=== PATIENT | female | born 1950 | race Hispanic/Latino ===

== ENCOUNTER → 2018-09-12 | Day surgery (SDC) | payer MEDICARE, OTHER ==
[2018-09-08 16:29] LABS: BASOPHILS # (AUTO) 0.1 (0.0-0.1); BASOPHILS % 0.9 % (0.0-1.0); EOSINOPHILS # (AUTO) 0.2 (0.0-0.4); EOSINOPHILS % 2.5 % (0.0-6.0); HEMATOCRIT 31.9 % (34.2-44.1); HEMOGLOBIN 10.6 g/dL (12.0-16.0); LYMPHOCYTES # (AUTO) 3.2 (1.0-3.2); LYMPHOCYTES % 42.9 % (18.0-39.1); MEAN CORPUSCULAR HGB CONC 33.2 g/dL (31-35); MEAN CORPUSCULAR VOLUME 96.4 fL (81-99); MONOCYTES # (AUTO) 0.8 (0.2-0.8); MONOCYTES % 10.3 % (4.4-11.3); NEUTROPHILS # (AUTO) 3.3 (2.1-6.9); NEUTROPHILS % 43.1 % (38.7-80.0); PLATELET COUNT 251 x10e3/uL (140-360); RED BLOOD COUNT 3.31 x10e6/uL (3.6-5.1); RED CELL DISTRIBUTION WIDTH 13.6 % (11.7-14.4)
[~2018-09-12] MED LIST: ARICEPT5 MG PO; ATORVASTATIN CA10 MG PO; CYMBALTA30 MG PO; FENOFIBRIC ACI105 MG PO; FENTANYL CITRATE/PF 100MCG/2 ML INJ ONE; FUROSEMIDE20 MG PO; GABAPENTIN300 MG PO; LEVOTHYROXINE112 MCG PO; LUMIGAN2.5 M1 OP; METFORMIN HCL500 MG PO; METHIMAZOLE10 MG PO; NORCO 7.5-3251 EACH PO; PREDNISONE5 MG PO; PROMETHAZINE HC25 M1 PO; PROPOFOL IV EMULSION 10 MG/ML 20 ML VIAL ONE; RANITIDINE HCL300 MG PO
--- OUTSIDE RECORDS SUMMARY | 2018-09-12 05:35 | XMS REPORT | Continuity of Care Document ---
Author Author [facility] Organization [facility] Address Unknown Phone Unavailable Care Team Providers Care Sports Medicine Trainer Name Role Phone MD Donnie, Ant COSME Unavailable Insurance Providers Payer name Policy type / Coverage type Policy ID Covered green party ID Policy Garcia AETNA - OPEN ACCESS (POS) AETNA - OPEN ACCESS (POS) AETNA - OPEN ACCESS (POS) Encounters Encounter Performer Location Date Lab Report Ant Fields MD [facility] Oct 21, 2013 Allergies, Adverse Reactions, Alerts Type Substance Reaction Status Drug allergy MORPHINE Active Problems Problem Effective Dates Problem Status CHOLELITHIASIS Oct 09, 2013 Active OTHER CHRONIC NONALCOHOLIC LIVER DISEASE Oct 09, 2013 Active Procedures Date Description Comments Oct 09, 2013 smoking status Never smoker Medications Medication Instructions Start Date Status CYMBALTA 60 MG CPEP Oct 09, 2013 Active CELEBREX 200 MG CAPS Oct 09, 2013 Active ORTHO-EST 0.625 0.75 MG TABS Oct 09, 2013 Active FUROSEMIDE 20 MG TABS Oct 09, 2013 Active GLUMETZA 1000 MG [id number] Oct 09, 2013 Active HYDROCODONE-ACETAMINOPHEN 5-325 MG TABS Oct 09, 2013 Active LEVOTHYROXINE SODIUM 500 MCG SOLR Oct 09, 2013 Active LUMIGAN 0.01 % SOLN Oct 09, 2013 Active LYRICA 75 MG CAPS Oct 09, 2013 Active PANTOPRAZOLE SODIUM 40 MG SOLR Oct 09, 2013 Active FENOFIBRIC ACID 135 MG CPDR Oct 09, 2013 Active VYTORIN 10-40 MG TABS Oct 09, 2013 Active OSTEO BI-FLEX REGULAR STRENGTH TABS Oct 09, 2013 Active CITRACAL/VITAMIN D TABS Oct 09, 2013 Active VITAMIN D TABS Oct 09, 2013 Active Vital Signs Date Description Test Result Oct 09, 2013 height E&M HEIGHT 64 in Oct 09, 2013 weight E&M WEIGHT 262 lb Oct 09, 2013 temperature E&M TEMPERATURE 98.4 deg f Oct 09, 2013 pulse rate E&M PULSE RATE 86 /min Oct 09, 2013 blood pressure, systolic BP SYSTOLIC 142 mm Hg Oct 09, 2013 blood pressure, diastolic BP DIASTOLIC 93 mm Hg
--- OUTSIDE RECORDS SUMMARY | 2018-09-12 05:35 | XMS REPORT | Continuity of Care Document ---
Author Author [facility] Organization [facility] Address Unknown Phone Unavailable Care Team Providers Care Manager Gyn Name Role Phone MD Donnie, Ant PP Unavailable Insurance Providers Payer name Policy type / Coverage type Policy ID Covered alliance party ID Policy Garcia AETNA - OPEN ACCESS (POS) AETNA - OPEN ACCESS (POS) AETNA - OPEN ACCESS (POS) Encounters Encounter Performer Location Date Office Visit Ant Fields MD [facility] Nov 06, 2013 Allergies, Adverse Reactions, Alerts Type Substance Reaction Status Drug allergy MORPHINE Active Problems Problem Effective Dates Problem Status CHOLELITHIASIS Oct 09, 2013 Active OTHER CHRONIC NONALCOHOLIC LIVER DISEASE Oct 09, 2013 Active Procedures Date Description Comments Oct 09, 2013 smoking status Never smoker Nov 06, 2013 smoking status Never smoker Medications Medication Instructions Start Date Status CYMBALTA 60 MG CPEP Oct 09, 2013 Active CELEBREX 200 MG CAPS Oct 09, 2013 Active ORTHO-EST 0.625 0.75 MG TABS Oct 09, 2013 Active FUROSEMIDE 20 MG TABS Oct 09, 2013 Active GLUMETZA 1000 MG [id number] Oct 09, 2013 Active HYDROCODONE-ACETAMINOPHEN 5-325 MG [...] pressure, diastolic BP DIASTOLIC 93 mm Hg Nov 06, 2013 weight E&M WEIGHT 259 lb Nov 06, 2013 temperature E&M TEMPERATURE 98.1 deg f Nov 06, 2013 pulse rate E&M PULSE RATE 76 /min Nov 06, 2013 blood pressure, systolic BP SYSTOLIC 130 mm Hg Nov 06, 2013 blood pressure, diastolic BP DIASTOLIC 79 mm Hg
--- OUTSIDE RECORDS SUMMARY | 2018-09-12 05:35 | XMS REPORT | Continuity of Care Document ---
Author Author [facility] Organization [facility] Address Unknown Phone Unavailable Care Team Providers Care Truck Driver Flatbed Name Role Phone MD Donnie, Ant COSME Unavailable Insurance Providers Payer name Policy type / Coverage type Policy ID Covered libertarian ID Policy Garcia AETNA - OPEN ACCESS (POS) AETNA - OPEN ACCESS (POS) AETNA - OPEN ACCESS (POS) Encounters Encounter Performer Location Date Lab Report Ant Fields MD [facility] [place] Oct 10, 2013 Vital Signs Date Description Test Result Oct [...]
--- OUTSIDE RECORDS SUMMARY | 2018-09-12 05:35 | XMS REPORT | Continuity of Care Document ---
Author Author [facility] Organization [facility] Address Unknown Phone Unavailable Care Team Providers Care Contract Administrative Assistant Name Role Phone MD Donnie, Ant PP Unavailable Insurance Providers Payer name Policy type / Coverage type Policy ID Covered democrat ID Policy Garcia AETNA - OPEN ACCESS (POS) AETNA - OPEN ACCESS (POS) AETNA - OPEN ACCESS (POS) Encounters Encounter Performer Location Date Office Visit Ant Fields MD [facility] Oct 09, 2013 Allergies, Adverse Reactions, Alerts Type Substance [...] Oct 09, 2013 Active GLUMETZA 1000 MG [id number] Oct 09, 2013 Active HYDROCODONE-ACETAMINOPHEN 5-325 MG [...]
--- OUTSIDE RECORDS SUMMARY | 2018-09-12 05:35 | XMS REPORT ---
Author Author Corazon Hernandez [facility] [employer] Address Unknown Phone Unavailable Care Team Providers Care Executive Officer Special Warfare Team Name Role Phone Corazon Hernandez Unavailable Allergies, Adverse Reactions, Alerts Substance Reaction Event Type Morphine Sulfate shortness of breath Drug Allergy Problems Problem Type Condition Code Onset Dates Condition Status Problem Osteoarthrosis M19.90 Active Problem Body Mass Index 40.0-44.9, adult V85.41 Active Problem Peripheral neuropathy 356.9 Active Problem Severe obesity (BMI 35.0-39.9) E66.01 Active Problem Carpal tunnel syndrome, left G56.02 Active Problem BMI 38.0-38.9,adult Z68.38 Active Problem Low back pain M54.5 Active Problem Morbid obesity 278.01 Active Problem Other chronic pain G89.29 Active Problem Hyperlipidemia E78.5 Active Assessment Abscess L02.91 Active Problem Osteopenia M85.80 Active Problem DM 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 type II, 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 Active Problem Esophageal reflux K21.9 Active Problem Other and unspecified hyperlipidemia E78.5 Active Problem Depressive disorder, not elsewhere classified F32.9 Active Problem Hypothyroidism E03.9 Active Problem Obesity 278.00 Active Medications Medication Code System Code Instructions Start Date End Date Status Dosage Lumigan [facility] [address]-70 0.01 % Ophthalmic Once a day Active 1 drop into affected eye in the evening Doxycycline Hyclate [facility] [address]-61 100 MG Orally every 12 hrs July 30, 2016 August 09, 2016 Active 1 capsule MetFORMIN HCl ER [facility] [address]-95 500 MG Orally Once a day Active 1 tablet with evening meal BD U/F Mini Pen Needle [facility] 8290-336705 31G X 5 MM subcutaneously daily with Victoza Dx E11.65 Dec 24, 2013 Active as directed Fenofibric Acid [facility] [address]-91 135 MG Orally Once a day Active 1 capsule Atorvastatin Calcium [facility] [id number] 10 mg Orally Once a day Active 1 tablet Cymbalta [facility] [address]-25 60 MG Orally twice a day Active 1 capsule Oxycodone-Acetaminophen [facility] [address]-86 10-325 MG Orally three times a day (tid) Active not defined OneTouch Test NDC 0 1 In Vitro daily Dec 07, 2013 Active one daily dx E11.65 OneTouch Lancets NDC 0 1 intramuscularly twice a day (bid) Dec 07, 2013 Active as directed dx E11.9 Furosemide [facility] [address]-15 20 MG Orally qd Active 2 tablet Vitamin D [facility] [address]-07 88665 UNIT Orally once per week Active 1 capsule OneTouch Basic System [facility] [address]-73 w/Device dx 250.00 daily Dec 07, 2013 Active as directed Pantoprazole Sodium [facility] [address]-36 40 MG Orally Once a day Active 1 tablet Celebrex [facility] [address]-68 200 MG Orally Once a day Active 1 capsule Acetaminophen [facility] [address] 650 MG Orally once a day Active 2 tablets in the evening Wellbutrin XL [facility] 10756806109 150 MG Orally Once a day Active 1 tablet in the morning Vital Signs Date/Time: August 02, 2016 BMI 37.55 Index Weight 212 lbs Height 63 in Cardiac Monitoring Heart Rate 76 /min Blood Pressure Diastolic 70 mm Hg Blood Pressure Systolic 120 mm Hg Results Name Result Date Reference Range Unit Abnormality Flag ROCEPHIN 250MG X2 Summary Purpose [employer]ClinicalWorks Submission
--- OUTSIDE RECORDS SUMMARY | 2018-09-12 05:35 | XMS REPORT | Continuity of Care Document ---
Author Author [facility] Interface Address Unknown Phone Unavailable Problems Problem Status Onset Date Classification Date Reported Comments Source CHOLELITHIASIS Active 10/09/2013 Condition 11/06/2013 [facility] OTHER CHRONIC NONALCOHOLIC LIVER DISEASE Active 10/09/2013 Condition 11/06/2013 [facility] Other and unspecified hyperlipidemia Active Problem 07/15/2018 [facility] DM 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 type II, uncontrolled Active Problem 07/15/2018 [facility] Hypothyroidism Active Problem 07/15/2018 [facility] Osteopenia Active Problem 07/15/2018 [facility] Other chronic pain Active Problem 07/15/2018 [facility] Hyperlipidemia Active Problem 07/15/2018 [facility] Carpal tunnel syndrome, left Active Problem 07/15/2018 [facility] Depressive disorder, not elsewhere classified Active Problem 07/15/2018 [facility] Esophageal reflux Active Problem 07/15/2018 [facility] Low back pain Active Problem 07/15/2018 [facility] Osteoarthrosis Active Problem 07/15/2018 [facility] Memory loss Active Problem 07/15/2018 [facility] CHANTAL Active Problem 07/15/2018 [facility] Difficulty walking Active Problem 07/15/2018 [facility] Type 2 diabetes mellitus without complication, without long-term current use of insulin Active Problem 07/15/2018 [facility] Body Mass Index 40.0-44.9, adult Active Problem 08/11/2016 [facility] Peripheral neuropathy Active Problem 08/11/2016 [facility] Severe obesity Active Problem 08/11/2016 [facility] BMI 38.0-38.9,adult Active Problem 08/11/2016 [facility] Morbid obesity Active Problem 08/11/2016 [facility] Abscess Active Diagnosis 08/05/2016 [facility] Obesity Active Problem 08/11/2016 [facility] Urinary tract infection, site unspecified Active Diagnosis 08/11/2016 [facility] Abscess of left breast Active Diagnosis 08/11/2016 [facility] Sore throat Active Diagnosis 02/25/2017 [facility] Flu-like symptoms Active Diagnosis 02/25/2017 [facility] Fall, initial encounter Active Diagnosis 02/25/2017 [facility] Breast cancer screening Active Diagnosis 07/14/2017 [facility] Localized edema Active Diagnosis 07/14/2017 [facility] Closed fracture of cervical vertebra, unspecified cervical vertebral level, subsequent encounter Active Diagnosis 12/01/2016 [facility] Dementia with behavioral disturbance, unspecified dementia type Active Problem 07/15/2018 [facility] Acquired hypothyroidism Active Problem 07/15/2018 [facility] Obstructive sleep apnea Active Problem 07/15/2018 [facility] Pain in right knee Active Diagnosis 08/16/2017 [facility] History of recent fall Active Diagnosis 05/12/2018 [facility] Pain in left knee Active Diagnosis 08/16/2017 [facility] Hyperlipidemia Active Problem 12/17/2014 [facility] Type II diabetes mellitus, uncontrolled Active Problem 12/17/2014 [facility] Hypothyroidism Active Problem 12/17/2014 [facility] Depression Active Problem 12/17/2014 [facility] GERD Active Problem 12/17/2014 [facility] Osteoarthritis Active Problem 12/17/2014 [facility] Menopause Active Diagnosis 11/20/2014 [facility] Vaginal mass Active Diagnosis 11/20/2014 [facility] Chronic pain Active Diagnosis 11/20/2014 [facility] Routine gynecological examination Active Diagnosis 11/20/2014 [facility] Soft tissue swelling Active Diagnosis 09/11/2015 [facility] Nausea & vomiting Active Diagnosis 09/10/2015 [facility] Yeast infection of the skin Active Diagnosis 09/10/2015 [facility] Depression Active Diagnosis 07/14/2015 [facility] UTI Active Diagnosis 07/14/2015 [facility] SK Active Diagnosis 06/19/2015 [facility] Tremor Active Diagnosis 06/19/2015 [facility] Skin lesion Active Diagnosis 06/19/2015 [facility] Encounter for repeat Papanicolaou smear of cervix Active Diagnosis 12/17/2014 [facility] Abdominal mass Active Diagnosis 11/08/2015 [facility] Abdominal pain Active Diagnosis 11/08/2015 [facility] Anxiety Active Problem 07/15/2018 [facility] Chest pain Active Diagnosis 11/08/2015 [facility] Vomiting Active Diagnosis 11/08/2015 [facility] Screening for breast cancer Active Diagnosis 11/08/2015 [facility] Epigastric pain Active Diagnosis 11/08/2015 [facility] Dependent edema Active Diagnosis 07/27/2016 [facility] Weight loss Active Diagnosis 11/08/2015 [facility] Lower abdominal pain Active Diagnosis 01/17/2016 [facility] Acute cystitis with hematuria Active Diagnosis 01/17/2016 [facility] Umbilical hernia without obstruction and without gangrene Active Diagnosis 01/17/2016 [facility] Vaginitis Active Diagnosis 12/10/2015 [facility] Elevated serum creatinine Active Diagnosis 09/19/2015 [facility] Pain in thoracic spine Active Diagnosis 04/29/2016 [facility] Status post umbilical hernia repair, follow-up exam Active Diagnosis 04/29/2016 [facility] Dementia without behavioral disturbance, unspecified dementia type Active Problem 07/15/2018 [facility] Chronic gastritis without bleeding, unspecified gastritis type Active Problem 07/15/2018 [facility] Vomiting, intractability of vomiting not specified, presence of nausea not specified, unspecified vomiting type Active Diagnosis 05/13/2018 [facility] Musculoskeletal pain Active Diagnosis 05/12/2018 [facility] Asymptomatic menopausal state Active Diagnosis 03/27/2018 [facility] Routine general medical examination at a health care facility Active Diagnosis 03/27/2018 [facility] Continuous leakage of urine Active Diagnosis 07/27/2016 [facility] Encntr for general adult medical exam w/o abnormal findings Active Diagnosis 07/27/2016 [facility] Impacted cerumen of both ears Active Diagnosis 06/08/2016 [facility] Hearing loss, unspecified hearing loss type, unspecified laterality Active Diagnosis 06/08/2016 [facility] Medications Medication Details Route Status Patient Instructions Ordering Provider Order Date Source Levothyroxine Sodium 1 tablet on an empty stomach in the morning Orally Active 125 MCG Orally Once a day [facility] 05/08/2018 [facility] Promethazine HCl 1 tablet\ Orally Active 25 MG Orally every 12 hrs prn nausea [facility] 05/08/2018 [facility] Ranitidine HCl 1 tablet Orally Active 300 MG Orally Once a day [facility] 07/18/2017 [facility] Amoxicillin 1 capsule Orally Active 500 mg Orally every 12 hrs [facility] 02/23/2017 [facility] Bromfed DM 10 ml as needed Orally Active 30-2-10 MG/5ML Orally Q8 PRN [facility] 02/23/2017 [facility] Levothyroxine Sodium 1 tablet on an empty stomach in the morning Orally Active 75 MCG Orally Once a day [facility] 12/02/2016 [facility] Levothyroxine Sodium 1 tablet on an empty stomach in the morning Orally Active 75 MCG Orally Once a day [facility] 12/02/2016 [facility] Doxycycline Hyclate 1 capsule Orally Active 100 MG Orally every 12 hrs [facility] 07/30/2016 [facility] Bactrim DS 1 tablet Orally Active 800-160 MG Orally Twice a day [facility] 07/28/2016 [facility] Pantoprazole Sodium 1 tablet Orally Active 40 MG Orally Once a day [facility] 03/15/2016 [facility] Fenofibric Acid 1 capsule Orally Active 135 MG Orally Once a day [facility] 03/15/2016 [facility] MetFORMIN HCl ER 1 tablet with evening meal Orally Active 500 MG Orally Once a day [facility] 03/15/2016 [facility] Cipro 1 tablet Orally Active 500 MG Orally Twice a day [facility] 01/14/2016 [facility] Levothyroxine Sodium 1 tablet Orally Active 150 MCG Orally Once a day, 30 minutes before first meal on an empty stomach [facility] 12/09/2015 [facility] Diflucan 1 tablet Orally Active 150 MG Orally once and another in 72 hours if needed [facility] 12/08/2015 [facility] Klor-Con 10 1 tablet with food Orally Active 10 MEQ Orally daily [facility] 11/07/2015 [facility] Levothyroxine Sodium 1 tablet Orally Active 175 MCG Orally Once a day [facility] 09/18/2015 [facility] MetFORMIN HCl ER 1 tablet with evening meal Orally Active 500 mg Orally Once a day [facility] 09/08/2015 [facility] Zofran 1 tablet Orally No Longer Active 4 mg Orally daily as needed [facility] 09/08/2015 [facility] Nystatin 1 to affected area Externally Active 818163 UNIT/GM Externally Twice a day [facility] 09/08/2015 [facility] Atorvastatin Calcium 1 tablet Orally Active 10 mg Orally Once a day [facility] 07/10/2015 [facility] Cipro 1 tablet Orally Active 250 MG Orally every 12 hrs [facility] 07/10/2015 [facility] Furosemide 2 tablet Orally Active 20 mg Orally twice a day (bid) [facility] 06/17/2015 [facility] Wellbutrin XL 1 tablet in the morning Orally No Longer Active 150 MG Orally Once a day [facility] 06/16/2015 [facility] Furosemide 2 tablet Orally Active 20 mg Orally twice a day (bid) (MUST SEE DOCTOR BEFORE NEXT REFILL) [facility] 05/22/2015 [facility] Lidocaine 1 patch to skin remove after 12 hours Externally Active 5 % Externally Once a day [facility] 04/01/2014 [facility] BD U/F Mini Pen Needle as directed subcutaneously Active 31G X 5 MM subcutaneously daily with Victoza Dx E11.65 [facility] 12/24/2013 [facility] OneTouch Test one daily dx E11.65 In Vitro Active 1 In Vitro daily [facility] 12/07/2013 [facility] OneTouch Lancets as directed dx E11.9 intramuscularly Active 1 intramuscularly twice a day (bid) [facility] 12/07/2013 [facility] OneTouch Basic System as directed dx 250.00 Active w/Device dx 250.00 daily [facility] 12/07/2013 [facility] OneTouch Lancets as directed dx 250.00 intramuscularly Active 1 intramuscularly twice a day (bid) [facility] 12/07/2013 [facility] OneTouch Test one daily dx 250.00 In Vitro Active 1 In Vitro daily [facility] 12/07/2013 [facility] OneTouch Lancets as directed dx E11.9 intramuscularly Active 1 intramuscularly twice a day (bid) [facility] 12/07/2013 [facility] OneTouch Test one daily dx E11.65 In Vitro Active 1 In Vitro daily [facility] 12/07/2013 [facility] CYMBALTA 60 MG CPEP Active 10/09/2013 [facility] CELEBREX 200 MG CAPS Active 10/09/2013 [facility] ORTHO-EST 0.625 0.75 MG TABS Active 10/09/2013 [facility] FUROSEMIDE 20 MG TABS Active 10/09/2013 [facility] GLUMETZA 1000 MG [id number] Active 10/09/2013 [facility] HYDROCODONE-ACETAMINOPHEN 5-325 MG TABS Active 10/09/2013 [facility] LEVOTHYROXINE SODIUM 500 MCG SOLR Active 10/09/2013 [facility] LUMIGAN 0.01 % SOLN Active 10/09/2013 [facility] LYRICA 75 MG CAPS Active 10/09/2013 [facility] PANTOPRAZOLE SODIUM 40 MG SOLR Active 10/09/2013 [facility] FENOFIBRIC ACID 135 MG CPDR Active 10/09/2013 [facility] VYTORIN 10-40 MG TABS Active 10/09/2013 [facility] OSTEO BI-FLEX REGULAR STRENGTH TABS Active 10/09/2013 [facility] CITRACAL/VITAMIN D TABS Active 10/09/2013 [facility] VITAMIN D TABS Active 10/09/2013 [facility] CELEBREX 200 MG CAPS Active 10/09/2013 [facility] HYDROCODONE-ACETAMINOPHEN 5-325 MG TABS Active 10/09/2013 [facility] LYRICA 75 MG CAPS Active 10/09/2013 [facility] MetFORMIN HCl ER 1 tablet with evening meal Orally Active 500 MG Orally Once a day [facility] Wellbutrin XL 1 tablet orally Active 150 MG orally Once a day [facility] Pantoprazole Sodium 1 tablet Orally Active 40 mg Orally Once a day [facility] MetFORMIN HCl ER 1 tablet with evening meal Orally Active 500 mg Orally qd [facility] Levothyroxine Sodium not defined Orally Active 88 MCG Orally [facility] Lumigan 1 drop into affected eye in the evening Ophthalmic Active 0.01 % Ophthalmic Once a day [facility] Fenofibric Acid 1 capsule Orally Active 135 MG Orally Once a day [facility] Atorvastatin Calcium TAKE 1 TABLET BY MOUTH DAILY NA Active 10 MG [facility] Cymbalta 1 capsule Orally Active 60 MG Orally twice a day [facility] Oxycodone-Acetaminophen not defined Orally Active 10-325 MG Orally three times a day (tid) [facility] Furosemide 2 tablet Orally Active 20 MG Orally qd [facility] Vitamin D 1 capsule Orally Active 76035 U Orally Once a day [facility] Pantoprazole Sodium 1 tablet Orally Active 40 MG Orally Once a day [facility] Celebrex 1 capsule Orally Active 200 MG Orally Once a day [facility] Acetaminophen 2 tablets in the evening Orally Active 650 MG Orally once a day [facility] Lumigan 1 drop into affected eye in the evening Ophthalmic Active 0.01 % Ophthalmic Once a day [facility] Fenofibric Acid 1 capsule Orally Active 135 MG Orally Once a day [facility] Furosemide 1 tablet SQ Active 20 mg SQ daily [facility] Oxycodone-Acetaminophen not defined Orally Active 10-325 MG Orally three times a day (tid) [facility] Biotin 1 tablet Orally Active 300 MCG Orally Once a day [facility] Cyclobenzaprine HCl 1 tablet as needed Orally Active 10 MG Orally Three times a day [facility] BuPROPion HCl ER (XL) TAKE 1 TABLET IN THE MORNING ONCE A DAY ORALLY 90 DAYS NA Active 150 MG [facility] Acetaminophen 2 tablets in the evening Orally Active 650 MG Orally once a day [facility] Gabapentin 1 capsule Orally Active 300 MG Orally Three times a day [facility] Cymbalta 1 capsule Orally Active 60 MG Orally Once a day [facility] Fenoprofen Calcium 1 capsule Orally Active 400 MG Orally Three times a day [facility] Hydrocodone-Acetaminophen not defined NA Active [facility] Atorvastatin Calcium 1 tablet Orally Active 10 mg Orally Once a day [facility] Levothyroxine Sodium 1 tablet by mouth Active 150 MCG by mouth daily [facility] PredniSONE not defined NA Active [facility] Gabapentin 1 capsule Orally Active 300 MG Orally Three times a day [facility] BuPROPion HCl ER (XL) 1 tablet in the morning Orally Active 150 MG Orally Once a day [facility] Fenoprofen Calcium 1 capsule Orally Active 400 MG Orally Three times a day [facility] Cyclobenzaprine HCl 1 tablet as needed Orally Active 10 MG Orally Three times a day [facility] PredniSONE 2 tablet Orally Active 5 MG Orally daily [facility] Donepezil Hydrochloride 1 tablet Orally Active 5 MG Orally Once a day [facility] ProAir HFA 2 puffs as needed Inhalation Active 108 (90 Base) MCG/ACT Inhalation as needed (prn) [facility] Hydrocodone-Acetaminophen 1 tablet Orally Active 10-325 MG Orally every 6 hrs [facility] Glumetza TAKE 1 TABLET BY MOUTH TWICE A DAY NA Active 1000 mg twice a day (bid) [facility] Tizanidine HCl 1 tablet as needed Orally No Longer Active 4 mg Orally every 8 hrs [facility] Lyrica 1 capsule Orally Active 150 MG Orally three times a day (tid) [facility] Levothyroxine Sodium take 1 tablet by mouth every day on an empty stomach NA Active 200 MCG [facility] Vimovo Unknown Orally Active 500-20 MG Orally Twice a day [facility] Pantoprazole Sodium 1 tablet Orally Active 40 MG Orally Once a day [facility] Furosemide TAKE 1 TABLET BY MOUTH DAILY NA Active 20 MG [facility] Estropipate TAKE 1 TABLET BY MOUTH EVERY DAY NA No Longer Active 0.75 MG [facility] Drisdol TAKE ONE CAPSULE BY MOUTH EACH WEEK NA Active 53367 UNIT [facility] Meloxicam Unknown Orally Active 7.5 MG Orally every day (qd) [facility] Glumetza TAKE 1 TABLET BY MOUTH TWICE A DAY NA Active 1000 MG [facility] Levothyroxine Sodium TAKE 1 TABLET BY MOUTH EVERY DAY ON AN EMPTY STOMACH NA No Longer Active 200 MCG [facility] Ciprofloxacin HCl 2 tablets Orally Active 250 MG Orally every 12 hrs [facility] BuPROPion HCl ER (SR) 1 tablet Orally Active 150 MG Orally Twice a day [facility] Levothyroxine Sodium 1 tablet Orally Active 150 MCG Orally Once a day [facility] Duloxetine HCl 1 capsule Orally Active 60 MG Orally Once a day [facility] Tramadol HCl 1 tablet on the tongue and allow to dissolve as needed Orally Active 50 MG Orally every 6 hrs [facility] Ranitidine HCl 1 tablet Orally Active 300 MG Orally Once a day [facility] Allergies, Adverse Reactions, Alerts Substance Category Reaction Severity Reaction type Status Date Reported Comments Source MORPHINE Drug allergy MORPHINE 10/09/2013 [facility] Morphine Sulfate Adverse Reaction shortness of breath Adverse Reaction Active 05/08/2018 [facility] Immunizations Immunization Date Given Site Status Last Updated Comments Source Results Order Name Results Value Reference Range Date Interpretation Comments Source Vital Signs Vital Sign Value Date Comments Source Weight 218 05/08/2018 [facility] Height 63 05/08/2018 [facility] Heart Rate 66 05/08/2018 [facility] Diastolic (mm Hg) 76 05/08/2018 [facility] Systolic (mm Hg) 120 05/08/2018 [facility] Weight 225 04/25/2018 [facility] Height 63 04/25/2018 [facility] Heart Rate 81 04/25/2018 [facility] Diastolic (mm Hg) 80 04/25/2018 [facility] Systolic (mm Hg) 122 04/25/2018 [facility] Weight 231 03/14/2018 [facility] Height 63 03/14/2018 [facility] Heart Rate 73 03/14/2018 [facility] Diastolic (mm Hg) 70 03/14/2018 [facility] Systolic (mm Hg) 128 03/14/2018 [facility] Weight 218.6 08/02/2017 [facility] Height 63 08/02/2017 [facility] Heart Rate 82 08/02/2017 [facility] Diastolic (mm Hg) 82 08/02/2017 [facility] Systolic (mm Hg) 120 08/02/2017 [facility] Weight 228 07/11/2017 [facility] Height 63 07/11/2017 [facility] Temperature Oral (F) 98.3 F 07/11/2017 [facility] Heart Rate 80 07/11/2017 [facility] Diastolic (mm Hg) 72 07/11/2017 [facility] Systolic (mm Hg) 148 07/11/2017 [facility] Weight 232 02/23/2017 [facility] Height 63 02/23/2017 [facility] Heart Rate 80 02/23/2017 [facility] Diastolic (mm Hg) 70 02/23/2017 [facility] Systolic (mm Hg) 130 02/23/2017 [facility] Weight 210 08/04/2016 [facility] Height 63 08/04/2016 [facility] Heart Rate 75 08/04/2016 [facility] Diastolic (mm Hg) 70 08/04/2016 [facility] Systolic (mm Hg) 132 08/04/2016 [facility] Weight 212 08/02/2016 [facility] Height 63 08/02/2016 [facility] Heart Rate 76 08/02/2016 [facility] Diastolic (mm Hg) 70 08/02/2016 [facility] Systolic (mm Hg) 120 08/02/2016 [facility] Weight 217 07/27/2016 [facility] Height 63 07/27/2016 [facility] Heart Rate 74 07/27/2016 [facility] Diastolic (mm Hg) 74 07/27/2016 [facility] Systolic (mm Hg) 128 07/27/2016 [facility] Weight 217 07/20/2016 [facility] Height 63 07/20/2016 [facility] Heart Rate 77 07/20/2016 [facility] Diastolic (mm Hg) 70 07/20/2016 [facility] Systolic (mm Hg) 116 07/20/2016 [facility] Weight 207 06/03/2016 [facility] Height 63 06/03/2016 [facility] Heart Rate 72 06/03/2016 [facility] Diastolic (mm Hg) 72 06/03/2016 [facility] Systolic (mm Hg) 122 06/03/2016 [facility] Weight 206 04/21/2016 [facility] Height 63 04/21/2016 [facility] Heart Rate 74 04/21/2016 [facility] Diastolic (mm Hg) 70 04/21/2016 [facility] Systolic (mm Hg) 110 04/21/2016 [facility] Weight 191 01/14/2016 [facility] Height 63 01/14/2016 [facility] Diastolic (mm Hg) 76 01/14/2016 [facility] Systolic (mm Hg) 124 01/14/2016 [facility] Weight 201 12/08/2015 [facility] Height 63 12/08/2015 [facility] Heart Rate 83 12/08/2015 [facility] Diastolic (mm Hg) 72 12/08/2015 [facility] Systolic (mm Hg) 120 12/08/2015 [facility] Weight 209 11/07/2015 [facility] Height 63 11/07/2015 [facility] Heart Rate 81 11/07/2015 [facility] Diastolic (mm Hg) 70 11/07/2015 [facility] Systolic (mm Hg) 119 11/07/2015 [facility] Weight 211 11/05/2015 [facility] Height 63 11/05/2015 [facility] Heart Rate 76 11/05/2015 [facility] Diastolic (mm Hg) 64 11/05/2015 [facility] Systolic (mm Hg) 122 11/05/2015 [facility] Weight 218 09/17/2015 [facility] Height 63 09/17/2015 [facility] Heart Rate 84 09/17/2015 [facility] Diastolic (mm Hg) 74 09/17/2015 [facility] Systolic (mm Hg) 132 09/17/2015 [facility] Weight 219 09/08/2015 [facility] Height 63 09/08/2015 [facility] Temperature Oral (F) 98.6 F 09/08/2015 [facility] Heart Rate 89 09/08/2015 [facility] Diastolic (mm Hg) 76 09/08/2015 [facility] Systolic (mm Hg) 144 09/08/2015 [facility] Weight 230 07/10/2015 [facility] Height 63 07/10/2015 [facility] Heart Rate 80 07/10/2015 [facility] Diastolic (mm Hg) 90 07/10/2015 [facility] Systolic (mm Hg) 128 07/10/2015 [facility] Weight 241 06/16/2015 [facility] Height 63 06/16/2015 [facility] Heart Rate 81 06/16/2015 [facility] Diastolic (mm Hg) 86 06/16/2015 [facility] Systolic (mm Hg) 132 06/16/2015 [facility] Weight 256 12/13/2014 [facility] Height 63 12/13/2014 [facility] Temperature Oral (F) 98.4 F 12/13/2014 [facility] Heart Rate 70 12/13/2014 [facility] Diastolic (mm Hg) 62 12/13/2014 [facility] Systolic (mm Hg) 120 12/13/2014 [facility] Weight 254 11/28/2014 [facility] Height 63 11/28/2014 [facility] Temperature Oral (F) 97.4 F 11/28/2014 [facility] Heart Rate 73 11/28/2014 [facility] Diastolic (mm Hg) 68 11/28/2014 [facility] Systolic (mm Hg) 112 11/28/2014 [facility] Weight 252 11/14/2014 [facility] Height 63 11/14/2014 [facility] Temperature Oral (F) 98.1 F 11/14/2014 [facility] Heart Rate 71 11/14/2014 [facility] Diastolic (mm Hg) 68 11/14/2014 [facility] Systolic (mm Hg) 120 11/14/2014 [facility] Weight 259 11/06/2013 [facility] Temperature Oral (F) 98.1 F 11/06[facility] Heart Rate 76 11/06/2013 [facility] Systolic (mm Hg) 130 11/06/2013 [facility] Diastolic (mm Hg) 79 11/06/[facility] Height 64 10/09/[facility] Weight 262 10/09/2013 [facility] Temperature Oral (F) 98.4 F 10/09/[facility] Heart Rate 86 10/09/2013 [facility] Systolic (mm Hg) 142 10/09/2013 [facility] Diastolic (mm Hg) 93 10/09/2013 [facility] Encounters Location Location Details Encounter Type Encounter Number Reason For Visit Attending Provider ADM Date DC Date Status Source [facility] General Surgery 350 Office Visit [id number] Ant Fields MD 10/09/2013 10/09/2013 [facility] Lab Report [id number] Ant Fields MD 10/10/2013 10/10/2013 [facility] Lab Report [id number] Ant Fields MD 10/21/2013 10/21/2013 [facility] General Surgery 350 Office Visit [id number] Ant Fields MD 11/06/2013 11/06/2013 [facility] [id number] 11/14/2014 11/14/2014 [facility] [id number] 11/14/2014 11/14/2014 [facility] [id number] 11/14/2014 11/14/2014 [facility] [id number] 11/14/2014 11/14/2014 [facility] [id number] 11/14/2014 11/14/2014 [facility] [id number] 11/14/2014 11/14/2014 [facility] [id number] 11/14/2014 11/14/2014 [facility] [id number] 11/14/2014 11/14/2014 [facility] [id number] 11/14/2014 11/14/2014 [facility] [id number] 11/14/2014 11/14/2014 [facility] [id number] 11/14/2014 11/14/2014 [facility] [id number] 11/14/2014 11/14/2014 [facility] [id number] 11/14/2014 11/14/2014 [facility] [id number] 11/14/2014 11/14/2014 [facility] [id number] 11/14/2014 11/14/2014 [facility] [id number] 11/14/2014 11/14/2014 [facility] [id number] 11/14/2014 11/14/2014 [facility] results [id number] 11/28/2014 11/28/2014 [facility] results [id number] 11/28/2014 11/28/2014 [facility] results [id number] 11/28/2014 11/28/2014 [facility] results [id number] 11/28/2014 11/28/2014 [facility] results [id number] 11/28/2014 11/28/2014 [facility] results [id number] 11/28/2014 11/28/2014 [facility] results [id number] 11/28/2014 11/28/2014 [facility] results [id number] 11/28/2014 11/28/2014 [facility] results [id number] 11/28/2014 11/28/2014 [facility] results [id number] 11/28/2014 11/28/2014 [facility] results [id number] 11/28/2014 11/28/2014 [facility] results [id number] 11/28/2014 11/28/2014 [facility] results [id number] 11/28/2014 11/28/2014 [facility] results [id number] 11/28/2014 11/28/2014 [facility] results [id number] 11/28/2014 11/28/2014 [facility] results [id number] 11/28/2014 11/28/2014 [facility] Referral denial [id number] 12/09/2014 12/09/2014 [facility] Referral denial [id number] 12/09/2014 12/09/2014 [facility] Referral denial [id number] 12/09/2014 12/09/2014 [facility] Referral denial [id number] 12/09/2014 12/09/2014 [facility] Referral denial [id number] 12/09/2014 12/09/2014 [facility] Referral denial [id number] 12/09/2014 12/09/2014 [facility] Referral denial [id number] 12/09/2014 12/09/2014 [facility] Referral denial [id number] 12/09/2014 12/09/2014 [facility] Referral denial [id number] 12/09/2014 12/09/2014 [facility] Referral denial [id number] 12/09/2014 12/09/2014 [facility] Referral denial [id number] 12/09/2014 12/09/2014 [facility] Referral denial [id number] 12/09/2014 12/09/2014 [facility] Referral denial [id number] 12/09/2014 12/09/2014 [facility] Referral denial [id number] 12/09/2014 12/09/2014 [facility] repeat pap [id number] 12/13/2014 12/13/2014 [facility] repeat pap [id number] 12/13/2014 12/13/2014 [facility] repeat pap [id number] 12/13/2014 12/13/2014 [facility] repeat pap [id number] 12/13/2014 12/13/2014 [facility] repeat pap [id number] 12/13/2014 12/13/2014 [facility] repeat pap [id number] 12/13/2014 12/13/2014 [facility] repeat pap [id number] 12/13/2014 12/13/2014 [facility] repeat pap [id number] 12/13/2014 12/13/2014 [facility] repeat pap [id number] 12/13/2014 12/13/2014 [facility] repeat pap [id number] 12/13/2014 12/13/2014 [facility] repeat pap [id number] 12/13/2014 12/13/2014 [facility] repeat pap [id number] 12/13/2014 12/13/2014 [facility] repeat pap [id number] 12/13/2014 12/13/2014 [facility] repeat pap [id number] 12/13/2014 12/13/2014 [facility] repeat pap [id number] 12/13/2014 12/13/2014 [facility] spots on back/ diabetes chk up [id number] 06/16/2015 06/16/2015 [facility] spots on back/ diabetes chk up [id number] 06/16/2015 06/16/2015 [facility] spots on back/ diabetes chk up [id number] 06/16/2015 06/16/2015 [facility] spots on back/ diabetes chk up [id number] 06/16/2015 06/16/2015 [facility] spots on back/ diabetes chk up [id number] 06/16/2015 06/16/2015 [facility] spots on back/ diabetes chk up [id number] 06/16/2015 06/16/2015 [facility] spots on back/ diabetes chk up [id number] 06/16/2015 06/16/2015 [facility] spots on back/ diabetes chk up [id number] 06/16/2015 06/16/2015 [facility] spots on back/ diabetes chk up [id number] 06/16/2015 06/16/2015 [facility] spots on back/ diabetes chk up [id number] 06/16/2015 06/16/2015 [facility] spots on back/ diabetes chk up [id number] 06/16/2015 06/16/2015 [facility] spots on back/ diabetes chk up [id number] 06/16/2015 06/16/2015 [facility] spots on back/ diabetes chk up [id number] 06/16/2015 06/16/2015 [facility] spots on back/ diabetes chk up [id number] 06/16/2015 06/16/2015 [facility] 2 week follow up [id number] 07/10/2015 07/10/2015 [facility] 2 week follow up [id number] 07/10/2015 07/10/2015 [facility] 2 week follow up [id number] 07/10/2015 07/10/2015 [facility] 2 week follow up [id number] 07/10/2015 07/10/2015 [facility] 2 week follow up [id number] 07/10/2015 07/10/2015 [facility] 2 week follow up [id number] 07/10/2015 07/10/2015 [facility] 2 week follow up [id number] 07/10/2015 07/10/2015 [facility] 2 week follow up [id number] 07/10/2015 07/10/2015 [facility] 2 week follow up [id number] 07/10/2015 07/10/2015 [facility] 2 week follow up [id number] 07/10/2015 07/10/2015 [facility] 2 week follow up [id number] 07/10/2015 07/10/2015 [facility] 2 week follow up [id number] 07/10/2015 07/10/2015 [facility] 2 week follow up [id number] 07/10/2015 07/10/2015 [facility] Nausea and vomiting [id number] 09/08/2015 09/08/2015 [facility] Nausea and vomiting [id number] 09/08/2015 09/08/2015 [facility] Nausea and vomiting [id number] 09/08/2015 09/08/2015 [facility] Nausea and vomiting [id number] 09/08/2015 09/08/2015 [facility] Nausea and vomiting [id number] 09/08/2015 09/08/2015 [facility] Nausea and vomiting [id number] 09/08/2015 09/08/2015 [facility] Nausea and vomiting [id number] 09/08/2015 09/08/2015 [facility] Nausea and vomiting [id number] 09/08/2015 09/08/2015 [facility] Nausea and vomiting [id number] 09/08/2015 09/08/2015 [facility] [facility] Nausea and vomiting [id number] 09/08/2015 09/08/2015 [facility] Nausea and vomiting [id number] 09/08/2015 09/08/2015 [facility] Nausea and vomiting [id number] 09/08/2015 09/08/2015 [facility] Soft Tissue Mass-Corazon [id number] 09/10/2015 09/10/2015 [facility] Soft Tissue [facility] [id number] 09/10/2015 09/10/2015 [facility] Soft Tissue Mass-[place]on [id number] 09/10/2015 09/10/2015 [facility] Soft Tissue Mass-[place] [id number] 09/10/2015 09/10/2015 [facility] Soft Tissue Mass-[place] [id number] 09/10/2015 09/10/2015 [facility] Soft Tissue [facility]-[place] [id number] 09/10/2015 09/10/2015 [facility] Soft Tissue Mass-[place] [id number] 09/10/2015 09/10/2015 [facility] Soft Tissue [facility]-[place] [id number] 09/10/2015 09/10/2015 [facility] Soft Tissue Mass-[place] [id number] 09/10/2015 09/10/2015 [facility] Soft Tissue Mass-[place] [id number] 09/10/2015 09/10/2015 [facility] Soft Tissue Mass-[place]on [id number] 09/10/2015 09/10/2015 [facility] follow up for thyroid medicine. [id number] 09/17/2015 09/17/2015 [facility] follow up for thyroid medicine. [id number] 09/17/2015 09/17/2015 [facility] follow up for thyroid medicine. [id number] 09/17/2015 09/17/2015 [facility] follow up for thyroid medicine. [id number] 09/17/2015 09/17/2015 [facility] follow up for thyroid medicine. [id number] 09/17/2015 09/17/2015 [facility] follow up for thyroid medicine. [id number] 09/17/2015 09/17/2015 [facility] follow up for thyroid medicine. [id number] 09/17/2015 09/17/2015 [facility] follow up for thyroid medicine. [id number] 09/17/2015 09/17/2015 [facility] follow up for thyroid medicine. [id number] 09/17/2015 09/17/2015 [facility] follow up for thyroid medicine. [id number] 09/17/2015 09/17/2015 [facility] Test results [id number] 09/18/2015 09/18/2015 [facility] Test results [id number] 09/18/2015 09/18/2015 [facility] Test results [id number] 09/18/2015 09/18/2015 [facility] Test results [id number] 09/18/2015 09/18/2015 [facility] Test results [id number] 09/18/2015 09/18/2015 [facility] Test results [id number] 09/18/2015 09/18/2015 [facility] Test results [id number] 09/18/2015 09/18/2015 [facility] Test results [id number] 09/18/2015 09/18/2015 [facility] Test results [id number] 09/18/2015 09/18/2015 [facility] Test results [id number] 09/18/2015 09/18/2015 [facility] heart racing fast [id number] 11/05/2015 11/05/2015 [facility] heart racing fast [id number] 11/05/2015 11/05/2015 [facility] heart racing fast [id number] 11/05/2015 11/05/2015 [facility] heart racing fast [id number] 11/05/2015 11/05/2015 [facility] heart racing fast [id number] 11/05/2015 11/05/2015 [facility] heart racing fast [id number] 11/05/2015 11/05/2015 [facility] heart racing fast [id number] 11/05/2015 11/05/2015 [facility] heart racing fast [id number] 11/05/2015 11/05/2015 [facility] Blood work-Corazon [id number] 11/06/2015 11/06/2015 [facility] Blood work-Corazon [id number] 11/06/2015 11/06/2015 [facility] Blood work-Corazon [id number] 11/06/2015 11/06/2015 [facility] Blood work-Corazon [id number] 11/06/2015 11/06/2015 [facility] Blood work-Corazon [id number] 11/06/2015 11/06/2015 [facility] Blood work-Corazon [id number] 11/06/2015 11/06/2015 [facility] Blood work-Corazon [id number] 11/06/2015 11/06/2015 [facility] Follow up [id number] 11/07/2015 11/07/2015 [facility] Follow up [id number] 11/07/2015 11/07/2015 [facility] Follow up [id number] 11/07/2015 11/07/2015 [facility] Follow up [id number] 11/07/2015 11/07/2015 [facility] Follow up [id number] 11/07/2015 11/07/2015 [facility] Follow up [id number] 11/07/2015 11/07/2015 [facility] Follow up [id number] 11/07/2015 11/07/2015 [facility] itching [id number] 12/08/2015 12/08/2015 [facility] itching [id number] 12/08/2015 12/08/2015 [facility] itching [id number] 12/08/2015 12/08/2015 [facility] itching [id number] 12/08/2015 12/08/2015 [facility] itching [id number] 12/08/2015 12/08/2015 [facility] Unknown [id number] 12/09/2015 12/09/2015 [facility] Unknown [id number] 12/09/2015 12/09/2015 [facility] Unknown [id number] 12/09/2015 12/09/2015 [facility] Unknown [id number] 12/09/2015 12/09/2015 [facility] Unknown [id number] 12/09/2015 12/09/2015 [facility] LOWER ABDOMAN PAIN [id number] 01/14/2016 01/14/2016 [facility] LOWER ABDOMAN PAIN [id number] 01/14/2016 01/14/2016 [facility] LOWER ABDOMAN PAIN [id number] 01/14/2016 01/14/2016 [facility] FOLLOW UP FROM PREVIOUS VISIT [id number] 04/21/2016 04/21/2016 [facility] FOLLOW UP FROM PREVIOUS VISIT [id number] 04/21/2016 04/21/2016 [facility] ear ache [id number] 06/03/2016 06/03/2016 [facility] Procedures Procedure Code Date Perfomer Comments Source
--- OUTSIDE RECORDS SUMMARY | 2018-09-12 05:36 | XMS REPORT ---
Author Author Marbella Foss [facility] eClinicalWorks Address Unknown Phone Unavailable Care Team Providers Care Reinforcing Steel Machine Operator Name Role Phone Marbella Foss CP Unavailable Allergies, Adverse Reactions, Alerts Substance Reaction Event Type Morphine Sulfate shortness of breath Drug Allergy Problems Problem Type Condition Code Onset Dates Condition Status Problem Low back pain M54.5 Active Problem Other chronic pain G89.29 Active Problem Hyperlipidemia E78.5 Active Problem Dementia with behavioral disturbance, unspecified dementia type F03.91 Active Assessment Dementia with behavioral disturbance, unspecified dementia type F03.91 Active Problem Memory loss R41.3 Active Assessment Acquired hypothyroidism E03.9 Active Problem Acquired hypothyroidism E03.9 Active Problem Type 2 diabetes mellitus without complication, without long-term current use of insulin E11.9 Active Problem Carpal tunnel syndrome, left G56.02 Active Problem Difficulty walking R26.2 Active Problem CHANTAL (obstructive sleep apnea) G47.33 Active Assessment Pain in right knee M25.561 Active Assessment History of recent fall Z91.81 Active Assessment Other chronic pain G89.29 Active Assessment Pain in left knee M25.562 Active Problem Hypothyroidism E03.9 Active Problem Esophageal reflux K21.9 Active Problem Osteopenia M85.80 Active Problem Depressive disorder, not elsewhere classified F32.9 Active Problem Other and unspecified hyperlipidemia E78.5 Active Problem Osteoarthrosis M19.90 Active Medications Medication Code System Code Instructions Start Date End Date Status Dosage MetFORMIN HCl ER ND 00978253945 500 mg orally with evening meal qd Active 1 tablet Gabapentin ND 95295002345 300 MG Orally Three times a day Active 1 capsule Acetaminophen ND 97312625196 650 MG Orally once a day Active 2 tablets in the evening Furosemide ND 97833703207 20 mg SQ daily Active 1 tablet Levothyroxine Sodium ND 25946452750 150 MCG Oral Active TAKE 1 TABLET BY MOUTH ON AN EMPTY STOMACH IN THE MORNING ONCE A DAY BuPROPion HCl ER (XL) ND 31451506317 150 MG Orally Once a day Active 1 tablet in the morning Cyclobenzaprine HCl [facility] 38191559324 10 MG Orally Three times a day Active 1 tablet as needed Hydrocodone-Acetaminophen [facility] [address]-91 Active not defined Cymbalta [facility] 26910912763 60 MG Orally Once a day Active 1 capsule Oxycodone-Acetaminophen [facility] 07992177573 10-325 MG Orally three times a day (tid) Active not defined PredniSONE [facility] 10156614168 5 MG Orally daily Active 2 tablet Vitamin D [facility] [address]-40 03173 U Orally Once a day Active 1 capsule Fenofibric Acid [facility] 38619515100 135 MG Orally Once a day Active 1 capsule Atorvastatin Calcium [facility] 41294715670 10 mg Orally Once a day Active 1 tablet Ranitidine HCl [facility] 28046952529 300 MG Orally Once a day July 18, 2017 Active 1 tablet Vitamin D [facility] [address]-83 35953 UNIT Orally once per week Active 1 capsule Fenoprofen Calcium [facility] 37507706217 400 MG Orally Three times a day Active 1 capsule Lumigan [facility] 86336011942 0.01 % Ophthalmic Once a day Active 1 drop into affected eye in the evening Donepezil Hydrochloride [facility] 37993193397 5 MG Oral Active TAKE 1 TABLET AT BEDTIME ONCE A DAY ORALLY 30 DAY(S) Vital Signs Date/Time: August 02, 2017 BMI 38.72 Index Weight 218.6 lbs Height 63 in Cardiac Monitoring Heart Rate 82 /min Blood Pressure Diastolic 82 mm Hg Blood Pressure Systolic 120 mm Hg Results No Known Results Summary Purpose eClinicalWorks Submission
--- OUTSIDE RECORDS SUMMARY | 2018-09-12 05:36 | XMS REPORT ---
Author Author Marbella Foss [facility] eClinicalWorks Address Unknown Phone Unavailable Care Team Providers Care Automotive Glass Specialist Name Role Phone Marbella Foss CP Unavailable Allergies, Adverse Reactions, Alerts Substance Reaction Event Type Morphine Sulfate shortness of breath Drug Allergy Problems Problem Type Condition Code Onset Dates Condition Status Assessment Vomiting, intractability of vomiting not specified, presence of nausea not specified, unspecified vomiting type R11.10 Active Assessment Depressive disorder, not elsewhere classified F32.9 Active Assessment DM 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 type II, 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 Active Assessment Other and unspecified hyperlipidemia E78.5 Active Problem Other chronic pain G89.29 Active Assessment Dementia with behavioral disturbance, unspecified dementia type F03.91 Active Problem Type 2 diabetes mellitus without complication, without long-term current use of insulin E11.9 Active Assessment Hypothyroidism E03.9 Active Problem CHANTAL (obstructive sleep apnea) G47.33 Active Problem Difficulty walking R26.2 Active Problem Memory loss R41.3 Active Problem Anxiety F41.9 Active Problem Dementia without behavioral disturbance, unspecified dementia type F03.90 Active Problem Osteopenia M85.80 Active Problem Chronic gastritis without bleeding, unspecified gastritis type K29.50 Active Assessment Chronic gastritis without bleeding, unspecified gastritis type K29.50 Active Problem Dementia with behavioral disturbance, unspecified dementia type F03.91 Active Problem Acquired hypothyroidism E03.9 Active Problem DM 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 type II, 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 Active Problem Obstructive sleep apnea G47.33 Active Problem Esophageal reflux K21.9 Active Problem Depressive disorder, not elsewhere classified F32.9 Active Problem Other and unspecified hyperlipidemia E78.5 Active Problem Hypothyroidism E03.9 Active Problem Hyperlipidemia E78.5 Active Problem Carpal tunnel syndrome, left G56.02 Active Problem Osteoarthrosis M19.90 Active Problem Low back pain M54.5 Active Medications Medication Code System Code Instructions Start Date End Date Status Dosage Cyclobenzaprine HCl [facility] 69376292085 10 MG Orally Three times a day Active 1 tablet as needed Duloxetine HCl [facility] 76926865441 60 MG Orally Once a day Active 1 capsule Donepezil Hydrochloride [facility] 65675556926 5 MG Orally Once a day Active 1 tablet Levothyroxine Sodium ND 24361691093 150 MCG by mouth daily Inactive 1 tablet Fenoprofen Calcium ND 76136499869 400 MG Orally Three times a day Active 1 capsule Levothyroxine Sodium [facility] 80638191869 125 MCG Orally Once a day May 08, 2018 Active 1 tablet on an empty stomach in the morning Atorvastatin Calcium [facility] 06264252035 10 MG Active TAKE 1 TABLET BY MOUTH DAILY Furosemide ND 93235371778 20 MG Active TAKE 1 TABLET BY MOUTH DAILY Promethazine HCl [facility] 02112423149 25 MG Orally every 12 hrs prn nausea May 08, 2018 June 07, 2018 Active 1 tablet\ Lumigan [facility] 26962906068 0.01 % Ophthalmic Once a day Active 1 drop into affected eye in the evening MetFORMIN HCl ER [facility] 53968564262 500 mg Orally qd Active 1 tablet with evening meal Fenofibric Acid [facility] 69463670164 135 MG Orally Once a day Active 1 capsule Pantoprazole Sodium [facility] 29850753758 40 MG Orally Once a day Active 1 tablet Tramadol HCl [facility] [address]-11 50 MG Orally every 6 hrs Active 1 tablet on the tongue and allow to dissolve as needed Hydrocodone-Acetaminophen [facility] [address]-92 Active not defined Gabapentin ND 22004103047 300 MG Orally Three times a day Active 1 capsule Ranitidine HCl [facility] 84873857068 300 MG Orally Once a day Active 1 tablet Vital Signs Date/Time: May 08, 2018 BMI 38.61 Index Weight 218 lbs Height 63 in Cardiac Monitoring Heart Rate 66 /min Blood Pressure Diastolic 76 mm Hg Blood Pressure Systolic 120 mm Hg Results No Known Results Summary Purpose eClinicalWorks Submission
--- OUTSIDE RECORDS SUMMARY | 2018-09-12 05:36 | XMS REPORT ---
Author Author Marbella Foss [facility] eClinicalWorks Address Unknown Phone Unavailable Care Team Providers Care Parole Agent Name Role Phone Marbella Foss CP Unavailable Allergies No Known Allergies Problems Problem Type Condition Code Onset Dates Condition Status Problem Low back pain M54.5 Active Problem Other chronic pain G89.29 Active Problem Hyperlipidemia E78.5 Active Problem Dementia with behavioral disturbance, unspecified dementia type F03.91 Active Problem Memory loss R41.3 Active Problem Acquired hypothyroidism E03.9 Active Problem Type 2 diabetes mellitus without complication, without long-term current use of insulin E11.9 Active Problem Carpal tunnel syndrome, left G56.02 Active Problem Difficulty walking R26.2 Active Problem CHANTAL (obstructive sleep apnea) G47.33 Active Problem Hypothyroidism E03.9 Active Problem Esophageal reflux K21.9 Active Problem Osteopenia M85.80 Active Problem Depressive disorder, not elsewhere classified F32.9 Active Problem Other and unspecified hyperlipidemia E78.5 Active Problem Osteoarthrosis M19.90 Active Medications No Known Medications Results No Known Results Summary Purpose eClinicalWorks Submission
--- OUTSIDE RECORDS SUMMARY | 2018-09-12 05:36 | XMS REPORT ---
Author Author Maddie Padgett [facility] eClinicalWorks Address Unknown Phone Unavailable Care Team Providers Care Senior Svp Name Role Phone Maddie Padgett CP Unavailable Allergies No Known Allergies Problems Problem Type Condition Code Onset Dates Condition Status Problem Hyperlipidemia E78.5 Active Problem Carpal tunnel syndrome, left G56.02 Active Problem Other chronic pain G89.29 Active Problem Acquired hypothyroidism E03.9 Active Problem Dementia with behavioral disturbance, unspecified dementia type F03.91 Active Problem Obstructive sleep apnea G47.33 Active Problem CHANTAL (obstructive sleep apnea) G47.33 Active Problem Type 2 diabetes mellitus without complication, without long-term current use of insulin E11.9 Active Problem Memory loss R41.3 Active Problem Difficulty walking R26.2 Active Assessment Obstructive sleep apnea G47.33 Active Problem Osteopenia M85.80 Active Problem Esophageal reflux K21.9 Active Problem Depressive disorder, not elsewhere classified F32.9 Active Problem Other and unspecified hyperlipidemia E78.5 Active Problem Osteoarthrosis M19.90 Active Problem Hypothyroidism E03.9 Active Problem Low back pain M54.5 Active Medications No Known Medications Results No Known Results Summary Purpose eClinicalWorks Submission
--- OUTSIDE RECORDS SUMMARY | 2018-09-12 05:36 | XMS REPORT ---
Author Author Marbella Foss [facility] eClinicalWorks Address Unknown Phone Unavailable Care Team Providers Care Filling Hauler Name Role Phone Marbella Foss CP Unavailable [...]
--- OUTSIDE RECORDS SUMMARY | 2018-09-12 05:36 | XMS REPORT ---
Author Author Marbella Foss [facility] eClinicalWorks Address Unknown Phone Unavailable Care Team Providers Care Heel Dipper Name Role Phone Marbella Foss CP Unavailable Allergies, Adverse Reactions, Alerts Substance Reaction Event Type Morphine Sulfate shortness of breath Drug Allergy Problems Problem Type Condition Code Onset Dates Condition Status Assessment Dementia with behavioral disturbance, unspecified dementia type F03.91 Active Assessment CHANTAL (obstructive sleep apnea) G47.33 Active Assessment Osteoarthrosis M19.90 Active Assessment Depressive disorder, not elsewhere classified F32.9 Active Problem Low back pain M54.5 Active Assessment Other and unspecified hyperlipidemia E78.5 Active Problem Hyperlipidemia E78.5 Active Assessment DM 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 type II, 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 Active Problem Other chronic pain G89.29 Active Problem Type 2 diabetes mellitus without complication, without long-term current use of insulin E11.9 Active Problem Carpal tunnel syndrome, left G56.02 Active Problem Obstructive sleep apnea G47.33 Active Problem Acquired hypothyroidism E03.9 Active Assessment Screening for malignant neoplasm of breast Z12.39 Active Assessment Asymptomatic menopausal state Z78.0 Active Problem DM 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 type II, 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 Active Assessment Hypothyroidism E03.9 Active Problem Memory loss R41.3 Active Problem CHANTAL (obstructive sleep apnea) G47.33 Active Problem Dementia with behavioral disturbance, unspecified dementia type F03.91 Active Problem Difficulty walking R26.2 Active Problem Osteopenia M85.80 Active Problem Other and unspecified hyperlipidemia E78.5 Active Assessment Routine general medical examination at a health care facility Z00.00 Active Problem Depressive disorder, not elsewhere classified F32.9 Active Problem Osteoarthrosis M19.90 Active Problem Hypothyroidism E03.9 Active Problem Esophageal reflux K21.9 Active Medications Medication Code System Code Instructions Start Date End Date Status Dosage Oxycodone-Acetaminophen NDC 87369511953 10-325 MG Orally three times a day (tid) Active not defined Hydrocodone-Acetaminophen [facility] [address]-91 Active not defined Acetaminophen ND 40429382915 650 MG Orally once a day Active 2 tablets in the evening Gabapentin [facility] 44737266887 300 MG Orally Three times a day Active 1 capsule Furosemide ND 02575023733 20 MG Active TAKE 1 TABLET BY MOUTH DAILY Fenofibric Acid [facility] 29208206480 135 MG Orally Once a day Active 1 capsule Duloxetine HCl [facility] 52307710441 60 MG Orally Once a day Active 1 capsule Lumigan [facility] 02702461654 0.01 % Ophthalmic Once a day Active 1 drop into affected eye in the evening Donepezil Hydrochloride [facility] 99800630982 5 MG Orally Once a day Active 1 tablet Ranitidine HCl [facility] 33040651448 300 MG Orally Once a day Active 1 tablet Atorvastatin Calcium [facility] 85210749698 10 MG Active TAKE 1 TABLET BY MOUTH DAILY MetFORMIN HCl ER [facility] 88330455126 500 mg Orally qd Active 1 tablet with evening meal BuPROPion HCl ER (XL) [facility] 07313684055 150 MG Active TAKE 1 TABLET IN THE MORNING ONCE A DAY ORALLY 90 DAYS Pantoprazole Sodium [facility] 32868069584 40 MG Orally Once a day Active 1 tablet Vitamin D [facility] [address]-15 84613 UNIT Orally once per week Active 1 capsule Cymbalta [facility] 05957346653 60 MG Orally Once a day Active 1 capsule Levothyroxine Sodium [facility] 05037379814 150 MCG by mouth daily Active 1 tablet Fenoprofen Calcium [facility] 38900928181 400 MG Orally Three times a day Active 1 capsule PredniSONE [facility] 69387762753 5 MG Orally daily Active 2 tablet Vitamin D [facility] [address]-82 54242 U Orally Once a day Active 1 capsule Cyclobenzaprine HCl [facility] 72203434060 10 MG Orally Three times a day Active 1 tablet as needed Vital Signs Date/Time: Mar 14, 2018 BMI 40.92 Index Weight 231 lbs Height 63 in Cardiac Monitoring Heart Rate 73 /min Blood Pressure Diastolic 70 mm Hg Blood Pressure Systolic 128 mm Hg Results No Known Results Summary Purpose eClinicalWorks Submission
--- OUTSIDE RECORDS SUMMARY | 2018-09-12 05:36 | XMS REPORT ---
Author Author Marbella Foss [facility] eClinicalWorks Address Unknown Phone Unavailable Care Team Providers Care Line Pilot Name Role Phone Marbella Foss CP Unavailable Allergies No Known Allergies Problems Problem Type Condition Code Onset Dates Condition Status Problem Hypothyroidism E03.9 Active Problem Depressive disorder, not elsewhere classified F32.9 Active Problem Esophageal reflux K21.9 Active Problem Osteopenia M85.80 Active Problem Other and unspecified hyperlipidemia E78.5 Active Problem Type 2 diabetes mellitus without complication, without long-term current use of insulin E11.9 Active Problem Carpal tunnel syndrome, left G56.02 Active Problem CHANTAL (obstructive sleep apnea) G47.33 Active Problem Low back pain M54.5 Active Problem Osteoarthrosis M19.90 Active Problem Other chronic pain G89.29 Active Problem Hyperlipidemia E78.5 Active Medications Medication Code System Code Instructions Start Date End Date Status Dosage MetFORMIN HCl ER ND 96034054470 500 mg orally with evening meal qd Active 1 tablet Wellbutrin XL ND 43387771825 150 MG orally Once a day Active 1 tablet Results No Known Results Summary Purpose eClinicalWorks Submission
--- OUTSIDE RECORDS SUMMARY | 2018-09-12 05:36 | XMS REPORT ---
Author Author Marbella Foss [facility] eClinicalWorks Address Unknown Phone Unavailable Care Team Providers Care Senior Rd Engineer Name Role Phone Marbella Foss CP Unavailable Allergies No Known Allergies Problems Problem Type Condition Code Onset Dates Condition Status Problem Esophageal reflux K21.9 Active Problem Low back pain M54.5 Active Problem Osteoarthrosis M19.90 Active Problem Memory loss R41.3 Active Problem CHANTAL (obstructive sleep apnea) G47.33 Active Problem Difficulty walking R26.2 Active Problem Other chronic pain G89.29 Active Problem Hyperlipidemia E78.5 Active Problem Type 2 diabetes mellitus without complication, without long-term current use of insulin E11.9 Active Problem Carpal tunnel syndrome, left G56.02 Active Problem Osteopenia M85.80 Active Problem Other and unspecified hyperlipidemia E78.5 Active Problem Hypothyroidism E03.9 Active Assessment Esophageal reflux K21.9 Active Problem Depressive disorder, not elsewhere classified F32.9 Active Medications Medication Code System Code Instructions Start Date End Date Status Dosage Pantoprazole Sodium [facility] 18754389007 40 mg Orally Once a day Inactive 1 tablet Ranitidine HCl [facility] 93525616269 300 MG Orally Once a day July 18, 2017 Active 1 tablet Results No Known Results Summary Purpose eClinicalWorks Submission
--- OUTSIDE RECORDS SUMMARY | 2018-09-12 05:36 | XMS REPORT ---
Author Author Marbella Foss Organization eClinicalWorks Address Unknown Phone Unavailable Care Team Providers Care Hospitality Services Manager Name Role Phone Marbella Foss CP Unavailable Allergies No Known Allergies Problems Problem Type Condition Code Onset Dates Condition Status Problem CHANTAL (obstructive sleep apnea) G47.33 Active Problem Difficulty walking R26.2 Active Problem Memory loss R41.3 Active Problem Anxiety F41.9 Active Problem Osteopenia M85.80 Active Problem Dementia without behavioral disturbance, unspecified dementia type F03.90 Active Problem Chronic gastritis without bleeding, unspecified [...] G56.02 Active Problem Osteoarthrosis M19.90 Active Problem Other chronic pain G89.29 Active Problem Low back pain M54.5 Active Problem Type 2 diabetes mellitus without complication, without long-term current use of insulin E11.9 Active Medications No Known Medications Results No Known Results Summary Purpose eClinicalWorks Submission
--- OUTSIDE RECORDS SUMMARY | 2018-09-12 05:36 | XMS REPORT ---
Author Author Marbella Foss [facility] eClinicalWorks Address Unknown Phone Unavailable Care Team Providers Care Sales Lead Generator Name Role Phone Marbella Foss CP Unavailable Allergies No Known Allergies Problems Problem Type Condition Code Onset Dates Condition Status Problem Other and unspecified hyperlipidemia E78.5 Active Problem DM 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 type II, 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 Active Problem Hypothyroidism E03.9 Active Assessment Hypothyroidism E03.9 Active Problem Osteopenia M85.80 Active Problem Other chronic pain G89.29 Active Problem Hyperlipidemia E78.5 Active Problem Carpal tunnel syndrome, left G56.02 Active Problem Depressive disorder, not elsewhere classified F32.9 Active Problem Esophageal reflux K21.9 Active Problem Low back pain M54.5 Active Problem Osteoarthrosis M19.90 Active Medications Medication Code System Code Instructions Start Date End Date Status Dosage Levothyroxine Sodium [facility] [address]-58 88 MCG Orally [place] [address]-47 75 MCG Orally Once a day Dec 02, 2016 Active 1 tablet on an empty stomach in the morning Results No Known Results Summary Purpose eClinicalWorks Submission
--- OUTSIDE RECORDS SUMMARY | 2018-09-12 05:36 | XMS REPORT ---
Author Author Corazon Hernandez [facility] eClinicalWorks Address Unknown Phone Unavailable Care Team Providers Care Sql Ssrs Developer Name Role Phone Corazon Hernandez Unavailable Allergies, Adverse Reactions, Alerts Substance Reaction Event Type Morphine Sulfate shortness of breath Drug Allergy Problems Problem Type Condition Code Onset Dates Condition Status Problem Other and unspecified hyperlipidemia E78.5 Active Problem DM 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 type II, 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 Active Problem Hypothyroidism E03.9 Active Problem Other chronic pain G89.29 Active Problem Hyperlipidemia E78.5 Active Problem Carpal tunnel syndrome, left G56.02 Active Problem Depressive disorder, not elsewhere classified F32.9 Active Problem Esophageal reflux K21.9 Active Problem Low back pain M54.5 Active Problem Osteoarthrosis M19.90 Active Assessment Other and unspecified hyperlipidemia E78.5 Active Assessment Hypothyroidism E03.9 Active Assessment DM 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 type II, 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 Active Assessment Closed fracture of cervical vertebra, unspecified cervical vertebral level, subsequent encounter S12.9XXD Active Problem Osteopenia M85.80 Active Medications Medication Code System Code Instructions Start Date End Date Status Dosage MetFORMIN HCl ER [facility] [address]-36 500 MG Orally Once a day Active 1 tablet with evening meal OneTouch Test NDC 0 1 In Vitro daily Dec 07, 2013 Active one daily dx E11.65 OneTouch Lancets NDC 0 1 intramuscularly twice a day (bid) Dec 07, 2013 Active as directed dx E11.9 OneTouch Basic System [facility] [address]-96 w/Device dx 250.00 daily Dec 07, 2013 Active as directed Cymbalta [facility] [address]-47 60 MG Orally twice a day Active 1 capsule Gabapentin [facility] [address]-84 300 MG Orally Three times a day Active 1 capsule Pantoprazole Sodium [facility] [address]-47 40 MG Orally Once a day Active 1 tablet Celebrex [facility] [address]-31 200 MG Orally Once a day Active 1 capsule BuPROPion HCl ER (XL) NDC [address]-94 150 MG Orally Once a day Active 1 tablet in the morning Fenofibric Acid [facility] [address]-24 135 MG Orally Once a day Active 1 capsule Fenoprofen Calcium [facility] [address]-24 400 MG Orally Three times a day Active 1 capsule Levothyroxine Sodium [facility] [address]-20 88 MCG Orally Active not defined Wellbutrin XL [facility] 63358765032 150 MG Orally Once a day Active 1 tablet in the morning Cyclobenzaprine HCl [facility] [address]-14 10 MG Orally Three times a day Active 1 tablet as needed Acetaminophen [facility] [address] 650 MG Orally once a day Active 2 tablets in the evening Lumigan [facility] [address]-66 0.01 % Ophthalmic Once a day Active 1 drop into affected eye in the evening Vitamin D [facility] [address]-47 79168 UNIT Orally once per week Active 1 capsule Atorvastatin Calcium [facility] 02765402469 10 mg Orally Once a day Active 1 tablet BD U/F Mini Pen Needle [facility] 8290-642786 31G X 5 MM subcutaneously daily with Victoza Dx E11.65 Dec 24, 2013 Active as directed Oxycodone-Acetaminophen [facility] [address]-58 10-325 MG Orally three times a day (tid) Active not defined Furosemide [facility] [address]-66 20 MG Orally qd Active 2 tablet Results No Known Results Summary Purpose eClinicalWorks Submission
--- OUTSIDE RECORDS SUMMARY | 2018-09-12 05:36 | XMS REPORT ---
Author Author Croazon Hernandez Organization eClinicalWorks Address Unknown Phone Unavailable Care Team Providers Care Television Repairman Name Role Phone Corazon Hernandez CP Unavailable Allergies No Known Allergies Problems Problem Type Condition Code Onset Dates Condition Status Problem Other and unspecified hyperlipidemia E78.5 Active Problem DM 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 type II, 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 Active Problem Hypothyroidism E03.9 Active Assessment DM 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 type II, 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 Active Problem Osteopenia M85.80 Active Problem Other chronic pain G89.29 Active Problem Hyperlipidemia E78.5 Active Problem Carpal tunnel syndrome, left G56.02 Active Problem Depressive disorder, not elsewhere classified F32.9 Active Problem Esophageal reflux K21.9 Active Problem Low back pain M54.5 Active Problem Osteoarthrosis M19.90 Active Medications Medication Code System Code Instructions Start Date End Date Status Dosage MetFORMIN HCl ER [facility] [address]-14 500 MG Orally Once a day Active 1 tablet with evening meal Wellbutrin XL [facility] 87206543122 150 MG Orally Once a day Active 1 tablet in the morning Results No Known Results Summary Purpose eClinicalWorks Submission
--- OUTSIDE RECORDS SUMMARY | 2018-09-12 05:36 | XMS REPORT ---
Author Author Marbella Foss [facility] eClinicalWorks Address Unknown Phone Unavailable Care Team Providers Care Wedding Cake Designer Name Role Phone Marbella Foss CP Unavailable [...] G89.29 Active Problem Hyperlipidemia E78.5 Active Assessment Urinary tract infection, site unspecified N39.0 Active Problem Osteopenia M85.80 Active Assessment Abscess of left breast N61.1 Active Problem DM 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 type II, 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 Active Problem Esophageal reflux K21.9 Active Problem Other and unspecified hyperlipidemia E78.5 Active Problem Depressive disorder, not elsewhere classified F32.9 Active Problem Hypothyroidism E03.9 Active Problem Obesity 278.00 Active Medications Medication Code System Code Instructions Start Date End Date Status Dosage Furosemide [facility] [address]-21 20 MG Orally qd Active 2 tablet Doxycycline Hyclate [facility] [address]-06 100 MG Orally every 12 hrs July 30, 2016 August 11, 2016 Active 1 capsule Oxycodone-Acetaminophen [facility] [address]-57 10-325 MG Orally three times a day (tid) Active not defined OneTouch Basic System [facility] [address]-50 w/Device dx 250.00 daily Dec 07, 2013 Active as directed Wellbutrin XL [facility] 74383705944 150 MG Orally Once a day Active 1 tablet in the morning Vitamin D [facility] [address]-94 89261 UNIT Orally once per week Active 1 capsule BD U/F Mini Pen Needle [facility] 8290-989695 31G X 5 MM subcutaneously daily with Victoza Dx E11.65 Dec 24, 2013 Active as directed Cymbalta [facility] [address]-64 60 MG Orally twice a day Active 1 capsule Celebrex [facility] [address]-75 200 MG Orally Once a day Active 1 capsule Acetaminophen [facility] 40421-[address]18 650 MG Orally once a day Active 2 tablets in the evening MetFORMIN HCl ER [facility] [address]-49 500 MG Orally Once a day Active 1 tablet with evening meal Pantoprazole Sodium [facility] [address]-20 40 MG Orally Once a day Active 1 tablet OneTouch Test NDC 0 1 In Vitro daily Dec 07, 2013 Active one daily dx E11.65 Fenofibric Acid [facility] [address]-38 135 MG Orally Once a day Active 1 capsule Atorvastatin Calcium [facility] 36934607562 10 mg Orally Once a day Active 1 tablet Lumigan [facility] [address]-41 0.01 % Ophthalmic Once a day Active 1 drop into affected eye in the evening OneTouch Lancets NDC 0 1 intramuscularly twice a day (bid) Dec 07, 2013 Active as directed dx E11.9 Vital Signs Date/Time: August 04, 2016 BMI 37.20 Index Weight 210 lbs Height 63 in Cardiac Monitoring Heart Rate 75 /min Blood Pressure Diastolic 70 mm Hg Blood Pressure Systolic 132 mm Hg Results No Known Results Summary Purpose eClinicalWorks Submission
--- OUTSIDE RECORDS SUMMARY | 2018-09-12 05:36 | XMS REPORT ---
Author Fuad Scott Organization eClinicalWorks Address Unknown Phone Unavailable Care Team Providers Care Legal Director Name Role Phone Fuad Lynn CP Unavailable Allergies, Adverse Reactions, Alerts Substance Reaction Event Type Morphine Sulfate shortness of breath Drug Allergy Problems Problem Type Condition Code Onset Dates Condition Status Assessment Esophageal reflux K21.9 Active Assessment Difficulty walking R26.2 Active Problem Hypothyroidism E03.9 Active Assessment Osteoarthrosis M19.90 Active Problem Depressive disorder, not elsewhere classified F32.9 Active Assessment Hyperlipidemia E78.5 Active Problem Esophageal reflux K21.9 Active Problem Low back pain M54.5 Active Problem Osteoarthrosis M19.90 Active Problem Memory loss R41.3 Active Problem CHANTAL (obstructive sleep apnea) G47.33 Active Assessment Depressive disorder, not elsewhere classified F32.9 Active Assessment Breast cancer screening Z12.31 Active Problem Difficulty walking R26.2 Active Assessment Other and unspecified hyperlipidemia E78.5 Active Problem Other chronic pain G89.29 Active Problem Hyperlipidemia E78.5 Active Problem Type 2 diabetes mellitus without complication, without long-term current use of insulin E11.9 Active Problem Carpal tunnel syndrome, left G56.02 Active Assessment Type 2 diabetes mellitus without complication, without long-term current use of insulin E11.9 Active Assessment Hypothyroidism E03.9 Active Assessment Low back pain M54.5 Active Assessment Localized edema R60.0 Active Problem Osteopenia M85.80 Active Problem Other and unspecified hyperlipidemia E78.5 Active Assessment Memory loss R41.3 Active Assessment Other chronic pain G89.29 Active Medications Medication Code System Code Instructions Start Date End Date Status Dosage Cyclobenzaprine HCl [facility] 34902557879 10 MG Orally Three times a day Active 1 tablet as needed Oxycodone-Acetaminophen [facility] 12523327935 10-325 MG Orally three times a day (tid) Active not defined Hydrocodone-Acetaminophen [facility] [address]-94 Active not defined Atorvastatin Calcium ND 68451890014 10 mg Orally Once a day Active 1 tablet Fenoprofen Calcium ND 77917856817 400 MG Orally Three times a day Active 1 capsule Gabapentin [facility] 88007147283 300 MG Orally Three times a day Active 1 capsule Levothyroxine Sodium [facility] 49412436128 150 MCG Oral Active TAKE 1 TABLET BY MOUTH ON AN EMPTY STOMACH IN THE MORNING ONCE A DAY Acetaminophen [facility] 92845286159 650 MG Orally once a day Active 2 tablets in the evening Pantoprazole Sodium [facility] 08180905825 40 mg Orally Once a day Active 1 tablet MetFORMIN HCl ER [facility] 97314127171 500 mg orally with evening meal qd Active 1 tablet BuPROPion HCl ER (XL) [facility] 78316336449 150 MG Orally Once a day Active 1 tablet in the morning Vitamin D [facility] [address]-16 40152 U Orally Once a day Active 1 capsule PredniSONE [facility] [address]-88 Active not defined Fenofibric Acid [facility] 88983395083 135 MG Orally Once a day Active 1 capsule Lumigan [facility] 18518011346 0.01 % Ophthalmic Once a day Active 1 drop into affected eye in the evening Vitamin D [facility] [address]-51 91401 UNIT Orally once per week Active 1 capsule Cymbalta [facility] 98136760857 60 MG Orally Once a day Active 1 capsule Furosemide [facility] 83618946193 20 mg SQ daily Active 1 tablet Vital Signs Date/Time: July 11, 2017 BMI 40.38 Index Weight 228 lbs Height 63 in Temperature 98.3 F Cardiac Monitoring Heart Rate 80 /min Blood Pressure Diastolic 72 mm Hg Blood Pressure Systolic 148 mm Hg Results No Known Results Summary Purpose eClinicalWorks Submission
--- OUTSIDE RECORDS SUMMARY | 2018-09-12 05:36 | XMS REPORT ---
Author Author Marbella Foss [facility] eClinicalWorks Address Unknown Phone Unavailable Care Team Providers Care Shroudman Name Role Phone Marbella Foss CP Unavailable Allergies, Adverse Reactions, Alerts Substance Reaction Event Type Morphine Sulfate shortness of breath Drug Allergy Problems Problem Type Condition Code Onset Dates Condition Status Assessment Dementia with behavioral disturbance, unspecified dementia type F03.91 Active Assessment Other and unspecified hyperlipidemia E78.5 Active Assessment DM 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 type II, 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 Active Assessment Hypothyroidism E03.9 Active Assessment Depressive disorder, not elsewhere classified F32.9 Active Assessment Anxiety F41.9 Active Problem Other chronic pain G89.29 Active Assessment Dementia without behavioral disturbance, unspecified dementia type F03.90 Active Problem Type 2 diabetes mellitus without complication, without long-term current use of insulin E11.9 Active Assessment History of recent fall Z91.81 Active Problem CHANTAL (obstructive sleep apnea) G47.33 Active Problem Difficulty walking R26.2 Active Problem Memory loss R41.3 Active Problem Anxiety F41.9 Active Problem Dementia without behavioral disturbance, unspecified dementia type F03.90 Active Problem Osteopenia M85.80 Active Problem Chronic gastritis without bleeding, unspecified gastritis type K29.50 Active Assessment Musculoskeletal pain M79.18 Active Problem Dementia with behavioral disturbance, unspecified [...] Instructions Start Date End Date Status Dosage Fenofibric Acid [facility] NAMED [facility] 94173635914 135 MG Orally Once a day Active 1 capsule Tramadol HCl [facility] NAMED [facility] [address]-25 50 MG Orally every 6 hrs Active 1 tablet on the tongue and allow to dissolve as needed Donepezil Hydrochloride FORMER[facility] NAMED [facility] 76528789588 5 MG Orally Once a day Active 1 tablet Acetaminophen [facility] NAMED [facility] 75087703082 650 MG Orally once a day Active 2 tablets in the evening Hydrocodone-Acetaminophen FOR[facility] NAMED [facility] [address]-80 Active not defined MetFORMIN HCl ER FORMER[facility] NAMED [facility] 31317984763 500 mg Orally qd Active 1 tablet with evening meal Levothyroxine Sodium FORMER[facility] NAMED [facility] 87900300634 150 MCG by mouth daily Active 1 tablet Fenoprofen Calcium [facility] NAMED [facility] 64871308348 400 MG Orally Three times a day Active 1 capsule Pantoprazole Sodium [facility] NAMED [facility] 68596006964 40 MG Orally Once a day Active 1 tablet Cyclobenzaprine HCl [facility] NAMED [facility] 80128883678 10 MG Orally Three times a day Active 1 tablet as needed Gabapentin [facility] NAMED [facility] 30525532214 300 MG Orally Three times a day Active 1 capsule Ranitidine HCl [facility] NAMED [facility] 49071005355 300 MG Orally Once a day Active 1 tablet PredniSONE FOR[facility] NAMED [facility] 34898752769 5 MG Orally daily Active 2 tablet Vitamin D [facility] NAMED [facility] [address]-40 21312 U Orally Once a day Active 1 capsule Lumigan [facility] NAMED [facility] 51045745931 0.01 % Ophthalmic Once a day Active 1 drop into affected eye in the evening Duloxetine HCl [facility] NAMED [facility] 32251096636 60 MG Orally Once a day Active 1 capsule Atorvastatin Calcium [facility] NAMED [facility] 58245941519 10 MG Active TAKE 1 TABLET BY MOUTH DAILY BuPROPion HCl ER (XL) [facility] NAMED [facility] 64207878014 150 MG Active TAKE 1 TABLET IN THE MORNING ONCE A DAY ORALLY 90 DAYS Furosemide [facility] NAMED [facility] 03469934997 20 MG Active TAKE 1 TABLET BY MOUTH DAILY Vital Signs Date/Time: Apr 24, 2018 BMI 39.85 Index Weight 225 lbs Height 63 in Cardiac Monitoring Heart Rate 81 /min Blood Pressure Diastolic 80 mm Hg Blood Pressure Systolic 122 mm Hg Results No Known Results Summary Purpose eClinicalWorks Submission
--- OUTSIDE RECORDS SUMMARY | 2018-09-12 05:36 | XMS REPORT ---
Author Maddie Price [facility] eClinicalWorks Address Unknown Phone Unavailable Care Team Providers Care Processing Analyst Name Role Phone Maddie Padgett CP Unavailable Allergies, Adverse Reactions, Alerts Substance Reaction Event Type Morphine Sulfate shortness of breath Drug Allergy Problems Problem Type Condition Code Onset Dates Condition Status Problem Hypothyroidism E03.9 Active Problem Depressive disorder, not elsewhere classified F32.9 Active Problem Esophageal reflux K21.9 Active Problem Type 2 diabetes mellitus without complication, without long-term current use of insulin E11.9 Active Problem Carpal tunnel syndrome, left G56.02 Active Problem CHANTAL (obstructive sleep apnea) G47.33 Active Problem Low back pain M54.5 Active Problem Osteoarthrosis M19.90 Active Problem Other chronic pain G89.29 Active Problem Hyperlipidemia E78.5 Active Assessment CHANTAL (obstructive sleep apnea) G47.33 Active Assessment Other chronic pain G89.29 Active Assessment Sore throat J02.9 Active Assessment Flu-like symptoms R68.89 Active Assessment Fall, initial encounter W19.XXXA Active Problem Osteopenia M85.80 Active Assessment Low back pain M54.5 Active Problem Other and unspecified hyperlipidemia E78.5 Active Medications Medication Code System Code Instructions Start Date End Date Status Dosage Lumigan [facility] 43961537470 0.01 % Ophthalmic Once a day Active 1 drop into affected eye in the evening Fenofibric Acid [facility] 72821405464 135 MG Orally Once a day Active 1 capsule Furosemide ND 84045086566 20 MG Orally qd Active 2 tablet MetFORMIN HCl ER ND 77992214837 500 MG Orally Once a day Active 1 tablet with evening meal Atorvastatin Calcium ND 08560936644 10 mg Orally Once a day Active 1 tablet Oxycodone-Acetaminophen ND 93937003239 10-325 MG Orally three times a day (tid) Active not defined Levothyroxine Sodium ND 86205697367 75 MCG Orally Once a day Dec 02, 2016 Active 1 tablet on an empty stomach in the morning Vitamin D [facility] [address]-22 31887 UNIT Orally once per week Active 1 capsule Biotin [facility] 12693023556 300 MCG Orally Once a day Active 1 tablet Vitamin D [facility] [address]-88 95388 U Orally Once a day Active 1 capsule Cyclobenzaprine HCl [facility] 34948746127 10 MG Orally Three times a day Active 1 tablet as needed BuPROPion HCl ER (XL) [facility] 31148758190 150 MG Orally Once a day Active 1 tablet in the morning Acetaminophen [facility] 13382765750 650 MG Orally once a day Active 2 tablets in the evening Amoxicillin [facility] 95909052845 500 mg Orally every 12 hrs Feb 23, 2017 Mar 05, 2017 Active 1 capsule Gabapentin [facility] 50802107064 300 MG Orally Three times a day Active 1 capsule Bromfed DM [facility] 39345417047 30-2-10 MG/5ML Orally Q8 PRN Feb 23, 2017 Mar 02, 2017 Active 10 ml as needed Cymbalta [facility] 23031477560 60 MG Orally Once a day Active 1 capsule Pantoprazole Sodium [facility] 66011132167 40 MG Orally Once a day Active 1 tablet Fenoprofen Calcium [facility] 43014593565 400 MG Orally Three times a day Active 1 capsule Vital Signs Date/Time: Feb 23, 2017 BMI 41.09 Index Weight 232 lbs Height 63 in Cardiac Monitoring Heart Rate 80 /min Blood Pressure Diastolic 70 mm Hg Blood Pressure Systolic 130 mm Hg Results Name Result Date Reference Range Unit Abnormality Flag RAPID FLU ----Result positive A [id number] RAPID STREP ----Positive positive [id number] Summary Purpose eClinicalWorks Submission
--- OUTSIDE RECORDS SUMMARY | 2018-09-12 05:37 | XMS REPORT ---
Author Marbella Matos [facility] eClinicalWorks Address Unknown Phone Unavailable Care Team Providers Care Laborer Syrup Machine Name Role Phone Marbella Rizoz CP Unavailable Allergies, Adverse Reactions, Alerts Substance Reaction Event Type Morphine Sulfate shortness of breath Drug Allergy Encounters Encounter Location Date [facility] Nov 14, 2014 Problems Problem Type Condition ICD-9 Code Onset Dates Condition Status Problem Hyperlipidemia 272.4 Active Problem Type II diabetes mellitus, uncontrolled 250.02 Active Problem Hypothyroidism 244.9 Active Problem Body Mass Index 40.0-44.9, adult V85.41 Active Problem Peripheral neuropathy 356.9 Active Problem Morbid obesity 278.01 Active Problem Depression 311 Active Problem GERD (gastroesophageal reflux disease) 530.81 Active Problem Osteoarthritis 715.90 Active Problem Obesity 278.00 Active Assessment Menopause 627.2 Active Assessment Visit for screening mammogram V76.12 Active Assessment Vaginal mass 625.8 Active Assessment Chronic pain 338.29 Active Assessment Type II diabetes mellitus, uncontrolled 250.02 Active Assessment Depression 311 Active Assessment Hypothyroidism 244.9 Active Assessment Peripheral neuropathy 356.9 Active Assessment Hyperlipidemia 272.4 Active Assessment Routine gynecological examination V72.31 Active Medications Medication Code System Code Instructions Start Date End Date Status Dosage Fenofibric [facility] 11770440269 135 MG Active TAKE ONE CAPSULE BY MOUTH EVERY DAY ProAir HFA [facility] [address]-64 108 (90 Base) MCG/ACT Inhalation as needed (prn) Active 2 puffs as needed OneTouch Lancets [facility] [address]-83 1 intramuscularly twice a day (bid) Dec 07, 2013 Active as directed dx 250.00 Hydrocodone-Acetaminophen [facility] [address]-66 10-325 MG Orally every 6 hrs Active 1 tablet Lumigan [facility] [address]-63 0.01 % Ophthalmic Once a day Active 1 drop into affected eye in the evening Glumetza [facility] [address]-55 1000 mg twice a day (bid) Active TAKE 1 TABLET BY MOUTH TWICE A DAY Oxycodone-Acetaminophen [facility] [address]-47 10-325 MG Orally three times a day (tid) Active Unknown Tizanidine HCl [facility] [address]-25 4 mg Orally every 8 hrs Active 1 tablet as needed Lyrica [facility] [address]-53 150 MG Orally three times a day (tid) Active 1 capsule BD U/F Mini Pen Needle [facility] 8290-894038 31G X 5 MM subcutaneously daily with Victoza Dx 250.02 Dec 24, 2013 Active as directed Cymbalta [facility] [address]-07 60 MG Orally twice a day Active 1 capsule Levothyroxine Sodium [facility] [address]-17 200 MCG Active take 1 tablet by mouth every day on an empty stomach Vimovo [facility] [address]-25 500-20 MG Orally Twice a day Active Unknown Pantoprazole Sodium [facility] 37491862039 40 MG Active TAKE 1 TABLET BY MOUTH EVERY DAY OneTouch Basic System [facility] [address]-44 w/Device dx 250.00 daily Dec 07, 2013 Active as directed OneTouch Test [facility] [address]-53 1 In Vitro daily Dec 07, 2013 Active one daily dx 250.00 Furosemide [facility] 34095945162 20 MG Active TAKE 2 TABLETS BY MOUTH TWICE A DAY Estropipate [facility] 12070061408 0.75 MG Inactive TAKE 1 TABLET BY MOUTH EVERY DAY Lidocaine [facility] [address]-48 5 % Externally Once a day Apr 01, 2014 Active 1 patch to skin remove after 12 hours Drisdol [facility] 24493481811 81516 UNIT Active TAKE ONE CAPSULE BY MOUTH EACH WEEK Meloxicam [facility] [address]-14 7.5 MG Orally every day (qd) Active Unknown Social History Social History Element Qualifiers Date Reported Flu Vaccine: . 12/07/2013 Nov 14, 2014 Where or with whom do you live ? . spouse Nov 14, 2014 Fall Risk: . none in the past year Nov 14, 2014 children . 2 Nov 14, 2014 Tobacco Use: . Are you a: never smoker Nov 14, 2014 Ethnicity . Status , Is fijian your primary language? Yes Nov 14, 2014 Use of recreational / street drugs? . Answer: No Nov 14, 2014 Marital Status: . Lopez Escobar Nov 14, 2014 Caffeine intake? . Status: No Nov 14, 2014 Do you exercise? . Answer: Yes, Type: walking, biking Nov 14, 2014 Do you drink alcohol? . Status: No Nov 14, 2014 Occupation: unemployed. Homemaker Nov 14, 2014 Vital Signs Date/Time: Nov 14, 2014 Weight 252 lbs Height 63 in Temperature 98.1 F Cardiac Monitoring Heart Rate 71 /min Blood Pressure Diastolic 68 mm Hg Blood Pressure Systolic 120 mm Hg Results HPV, HYBRID CAPTURE II (HUMAN PAPILLOMAVIRUS) HPV DNA (HIGH RISK)(- ) TNP EKG HEMOCCULT CARD SUREPATH FPGS PAP SOURCE:(- ) NONE GIVEN CLINICAL MANAGER:(- ) JGM, CT(ASCP) PREV. PAP:(- ) NONE GIVEN PREV. BX:(- ) NONE GIVEN LMP:(- ) NONE GIVEN Chest 2 views- Xray Bone Density Scan Summary Purpose eClinicalWorks Submission
--- OUTSIDE RECORDS SUMMARY | 2018-09-12 05:37 | XMS REPORT ---
Author Author Corazon Hernandez [facility] eClinicalWorks Address Unknown Phone Unavailable Care Team Providers Care Fire Alarm Inspector Name Role Phone Corazon Hernandez Unavailable Allergies, Adverse Reactions, Alerts Substance Reaction Event Type Morphine Sulfate shortness of breath Drug Allergy Encounters Encounter Location Date Referral denial [facility] Dec 09, 2014 spots on back/ diabetes chk up [facility] June 16, 2015 2 week follow up [facility] July 10, 2015 Nausea and vomiting [facility] September 08, 2015 WWE/[facility]W [facility] Nov 14, 2014 results [facility] Nov 28, 2014 repeat pap [facility] Dec 13, 2014 Test results [facility] September 18, 2015 Soft Tissue Mass-Corazon [facility] September 10, 2015 follow up for thyroid medicine. [facility] September 17, 2015 Problems Problem Type Condition ICD-9 Code Onset Dates Condition Status Problem DM 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 type II, 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 Active Problem Depressive disorder, not elsewhere classified F32.9 Active Problem Esophageal reflux K21.9 Active Problem Low back pain M54.5 Active Problem Morbid obesity 278.01 Active Problem Hyperlipidemia E78.5 Active Problem Osteoarthrosis M19.90 Active Problem Obesity 278.00 Active Problem Body Mass Index 40.0-44.9, adult V85.41 Active Problem Peripheral neuropathy 356.9 Active Assessment Low back pain M54.5 Active Assessment Elevated serum creatinine R79.89 Active Assessment Weight loss R63.4 Active Assessment Hypothyroidism E03.9 Active Problem Osteopenia M85.80 Active Assessment Other and unspecified hyperlipidemia E78.5 Active Problem Other and unspecified hyperlipidemia E78.5 Active Assessment DM 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 type II, 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 Active Problem Hypothyroidism E03.9 Active Medications Medication Code System Code Instructions Start Date End Date Status Dosage Furosemide [facility] 52799931215 20 mg Orally twice a day (bid) Active 2 tablet Ciprofloxacin HCl [facility] [address]-70 250 MG Orally every 12 hrs Active 2 tablets OneTouch Lancets [facility] [address]-28 1 intramuscularly twice a day (bid) Dec 07, 2013 Active as directed dx 250.00 OneTouch Basic System [facility] [address]-00 w/Device dx 250.00 daily Dec 07, 2013 Active as directed OneTouch Test [facility] [address]-26 1 In Vitro daily Dec 07, 2013 Active one daily dx 250.00 Wellbutrin XL [facility] [address]-93 150 MG Orally Once a day June 16, 2015 Active 1 tablet in the morning Lumigan [facility] [address]-02 0.01 % Ophthalmic Once a day Active 1 drop into affected eye in the evening Nystatin [facility] [address]-44 295302 UNIT/GM Externally Twice a day September 08, 2015 October 08, 2015 Active 1 to affected area Fenofibric Acid [facility] 19673944432 135 MG Active TAKE ONE CAPSULE BY MOUTH EVERY DAY Atorvastatin Calcium [facility] [address]-73 10 mg Orally Once a day July 10, 2015 Active 1 tablet Celebrex [facility] [address]-13 200 MG Orally Once a day Active 1 capsule Cymbalta [facility] [address]-31 60 MG Orally twice a day Active 1 capsule Levothyroxine Sodium [facility] 13983929276 200 MCG Active TAKE 1 TABLET BY MOUTH EVERY DAY ON AN EMPTY STOMACH Pantoprazole Sodium [facility] 02172028036 40 MG Active TAKE 1 TABLET BY MOUTH EVERY DAY Tizanidine HCl [facility] [address]-87 4 mg Orally every 8 hrs Inactive 1 tablet as needed BuPROPion HCl ER (SR) [facility] [address]-45 150 MG Orally Twice a day Active 1 tablet MetFORMIN HCl ER [facility] [address]-49 500 mg Orally Once a day September 08, 2015 Active 1 tablet with evening meal Acetaminophen [facility] 27394-04566 650 MG Orally once a day Active 2 tablets in the evening BD U/F Mini Pen Needle [facility] 8290-955886 31G X 5 MM subcutaneously daily with Victoza Dx 250.02 Dec 24, 2013 Active as directed Oxycodone-Acetaminophen [facility] [address]-14 10-325 MG Orally three times a day (tid) Active Unknown Zofran [facility] [address]-28 4 mg Orally daily as needed September 08, 2015 Inactive 1 tablet Social History Social History Element Qualifiers Date Reported Occupation: unemployed. Homemaker September 17, 2015 children . 2 September 17, 2015 Ethnicity . Status , Is slovak your primary language? Yes September 17, 2015 Tobacco Use: . Are you a: never smoker September 17, 2015 Last Colonoscopy: . 07/2012September 17, 2015 Use of recreational / street drugs? . Answer: No September 17, 2015 Do you have pets? . Status: No September 17, 2015 Where or with whom do you live ? . spouse September 17, 2015 Fall Risk: . 2+ in past year w/o injury September 17, 2015 Marital Status: . Lopez Escobar September 17, 2015 Last Bone Density: . 04/2015September 17, 2015 Caffeine intake? . Status: No September 17, 2015 Do you exercise? . Answer: Yes, Type: walking, biking September 17, 2015 Flu Vaccine: . 2014September 17, 2015 Depression Screening: . positive September 17, 2015 Do you drink alcohol? . Status: No September 17, 2015 Pneumoccocal Vaccine . No September 17, 2015 Vital Signs Date/Time: September 17, 2015 Weight 218 lbs Height 63 in Cardiac Monitoring Heart Rate 84 /min Blood Pressure Diastolic 74 mm Hg Blood Pressure Systolic 132 mm Hg Summary Purpose eClinicalWorks Submission
--- OUTSIDE RECORDS SUMMARY | 2018-09-12 05:37 | XMS REPORT ---
Author Author Corazon Hernandez [facility] eClinicalWorks Address Unknown Phone Unavailable Care Team Providers Care Structural Test Engineer Name Role Phone Corazon Hernandez CP Unavailable Allergies, Adverse Reactions, Alerts Substance Reaction Event Type Morphine Sulfate shortness of breath Drug Allergy Encounters Encounter Location Date Referral denial [facility] Dec 09, 2014 spots on back/ diabetes chk up [facility] June 16, 2015 2 week follow up [facility] July 10, 2015 Nausea and vomiting [facility] September 08, 2015 WWE/FBW [facility] Nov 14, 2014 results [facility] Nov 28, 2014 repeat pap [facility] Dec 13, 2014 Problems Problem Type Condition ICD-9 Code [...] Active Problem Peripheral neuropathy 356.9 Active Assessment Soft tissue swelling R22.9 Active Assessment Nausea & vomiting R11.2 Active Problem Osteopenia M85.80 Active Assessment Yeast infection of the skin B37.2 Active Problem Other and unspecified hyperlipidemia E78.5 Active Assessment DM 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 type II, 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 Active Problem Hypothyroidism E03.9 Active Medications Medication Code System Code Instructions Start Date End Date Status Dosage Oxycodone-Acetaminophen MEDISPAN [address]-41 10-325 MG Orally three times a day (tid) Active Unknown Acetaminophen [facility] 71201-98696 650 MG Orally once a day Active 2 tablets in the evening Celebrex [facility] [address]-54 200 MG Orally Once a day Active 1 capsule MetFORMIN HCl ER [facility] [address]-86 500 mg Orally Once a day September 08, 2015 Active 1 tablet with evening meal Furosemide [facility] 62523229308 20 mg Orally twice a day (bid) Active 2 tablet OneTouch Basic System [facility] [address]-88 w/Device dx 250.00 daily Dec 07, 2013 Active as directed Zofran [facility] [address]-13 4 mg Orally daily as needed September 08, 2015 Active 1 tablet Wellbutrin XL [facility] [address]-67 150 MG Orally Once a day June 16, 2015 Active 1 tablet in the morning BD U/F Mini Pen Needle [facility] 8290-159011 31G X 5 MM subcutaneously daily with Victoza Dx 250.02 Dec 24, 2013 Active as directed Levothyroxine Sodium [facility] 06341794404 200 MCG Active TAKE 1 TABLET BY MOUTH EVERY DAY ON AN EMPTY STOMACH OneTouch Lancets [facility] [address]-53 1 intramuscularly twice a day (bid) Dec 07, 2013 Active as directed dx 250.00 OneTouch Test [facility] [address]-68 1 In Vitro daily Dec 07, 2013 Active one daily dx 250.00 Ciprofloxacin HCl [facility] [address]-59 250 MG Orally every 12 hrs Active 2 tablets Tizanidine HCl [facility] [address]-02 4 mg Orally every 8 hrs Active 1 tablet as needed Cymbalta [facility] [address]-29 60 MG Orally twice a day Active 1 capsule Pantoprazole Sodium [facility] 39860833235 40 MG Active TAKE 1 TABLET BY MOUTH EVERY DAY BuPROPion HCl ER (SR) [facility] [address]-14 150 MG Orally Twice a day Active 1 tablet Lumigan [facility] [address]-55 0.01 % Ophthalmic Once a day Active 1 drop into affected eye in the evening Atorvastatin Calcium [facility] [address]-02 10 mg Orally Once a day July 10, 2015 Active 1 tablet Fenofibric Acid [facility] 96199582747 135 MG Active TAKE ONE CAPSULE BY MOUTH EVERY DAY Nystatin [facility] [address]-38 488473 UNIT/GM Externally Twice a day September 08, 2015 October 08, 2015 Active 1 to affected area Social History Social History Element Qualifiers Date Reported Occupation: unemployed. Homemaker September 08, 2015 children . 2 September 08, 2015 Ethnicity . Status , Is marshallese your primary language? Yes September 08, 2015 Tobacco Use: . Are you a: never smoker September 08, 2015 Last Colonoscopy: . 07/2012September 08, 2015 Use of recreational / street drugs? . Answer: No September 08, 2015 Do you have pets? . Status: No September 08, 2015 Where or with whom do you live ? . spouse September 08, 2015 Fall Risk: . 2+ in past year w/o injury September 08, 2015 Marital Status: . Lopez Escobar September 08, 2015 Last Bone Density: . 04/2015September 08, 2015 Caffeine intake? . Status: No September 08, 2015 Do you exercise? . Answer: Yes, Type: walking, biking September 08, 2015 Flu Vaccine: . 2014September 08, 2015 Depression Screening: . positive September 08, 2015 Do you drink alcohol? . Status: No September 08, 2015 Pneumoccocal Vaccine . No September 08, 2015 Vital Signs Date/Time: September 08, 2015 Weight 219 lbs Height 63 in Temperature 98.6 F Cardiac Monitoring Heart Rate 89 /min Blood Pressure Diastolic 76 mm Hg Blood Pressure Systolic 144 mm Hg Results URINE AUTO W/O SCOPE Summary Purpose eClinicalWorks Submission
--- OUTSIDE RECORDS SUMMARY | 2018-09-12 05:37 | XMS REPORT ---
Author Author Corazon Hernandez [facility] eClinicalWorks Address Unknown Phone Unavailable Care Team Providers Care Legal Document Specialist Name Role Phone Corazon Hernandez CP Unavailable Encounters Encounter Location Date Referral denial [facility] Dec 09, 2014 spots on back/ diabetes chk up [facility] June 16, 2015 [address] [facility] July 10, 2015 Nausea and vomiting [facility] September 08, 2015 WWE/FBW [facility] Nov 14, [address] [facility] Nov 28, [address] [facility] Dec 13, [address] [facility] September 18, 2015 Soft Tissue Mass-Corazon [facility] September 10, 2015 follow up for thyroid medicine. [facility] September 17, 2015 [...] Active Problem Peripheral neuropathy 356.9 Active Assessment Hypothyroidism E03.9 Active Problem Osteopenia M85.80 Active Problem Other and unspecified hyperlipidemia E78.5 Active Problem Hypothyroidism E03.9 Active Medications Medication Code System Code Instructions Start Date End Date Status Dosage Levothyroxine Sodium MEDISPAN 09017488629 200 MCG Inactive TAKE 1 TABLET BY MOUTH EVERY DAY ON AN EMPTY STOMACH Levothyroxine Sodium [facility] [address]-86 175 MCG Orally Once a day September 18, 2015 Active 1 tablet Social History Social History Element Qualifiers Date Reported Occupation: unemployed. Homemaker September 17, 2015 children . 2 September 17, 2015 Ethnicity . Status , Is telugu your primary language? Yes September 17, 2015 [...] Pneumoccocal Vaccine . No September 17, 2015 Summary Purpose eClinicalWorks Submission
--- OUTSIDE RECORDS SUMMARY | 2018-09-12 05:37 | XMS REPORT ---
Author Author Juliette Monroy [facility] eClinicalWorks Address Unknown Phone Unavailable Care Team Providers Care Pet Crematory Worker Name Role Phone Juliette Monroy CP Unavailable Allergies, Adverse Reactions, Alerts Substance Reaction Event Type Morphine Sulfate shortness of breath Drug Allergy Encounters Encounter Location Date WWE/FBW [facility] Nov 14, 2014 results [facility] Nov 28, 2014 repeat pap [facility] Dec 13, 2014 Problems Problem Type Condition ICD-9 Code Onset Dates Condition Status Problem Hyperlipidemia 272.4 Active Problem Type II diabetes mellitus, uncontrolled 250.02 Active Problem Hypothyroidism 244.9 Active Assessment Encounter for repeat Papanicolaou smear of cervix V76.2 Active Problem Body Mass Index 40.0-44.9, adult V85.41 Active Problem Peripheral neuropathy 356.9 Active Problem Morbid obesity 278.01 Active Problem Depression 311 Active Problem GERD (gastroesophageal reflux disease) 530.81 Active Problem Osteoarthritis 715.90 Active Problem Obesity 278.00 Active Medications Medication Code System Code Instructions Start Date End Date Status Dosage Lumigan [facility] [address]-46 0.01 % Ophthalmic Once a day Active 1 drop into affected eye in the evening BD U/F Mini Pen Needle [facility] 8290-385875 31G X 5 MM subcutaneously daily with Victoza Dx 250.02 Dec 24, 2013 Active as directed [facility] 17955305945 1000 MG Active TAKE 1 TABLET BY MOUTH TWICE A DAY Vimovo [facility] [address]-35 500-20 MG Orally Twice a day Active Unknown Fenofibric Acid [facility] 85578456102 135 MG Active TAKE ONE CAPSULE BY MOUTH EVERY DAY OneToMOLOME System [facility] Visions [address]-53 w/Device dx 250.00 daily Dec 07, 2013 Active as directed Lyrica [facility] [address]-37 150 MG Orally three times a day (tid) Active 1 capsule Cymbalta IbottaT1 [facility] [address]-71 60 MG Orally twice a day Active 1 capsule Meloxicam [facility] [address]-10 7.5 MG Orally every day (qd) Active Unknown Pantoprazole Sodium [facility] 59540819131 40 MG Active TAKE 1 TABLET BY MOUTH EVERY DAY ProAir HFA [facility] [address]-41 108 (90 Base) MCG/ACT Inhalation as needed (prn) Active 2 puffs as needed Tizanidine HCl [facility] [address]-05 4 mg Orally every 8 hrs Active 1 tablet as needed Furosemide [facility] 86474742069 20 MG Active TAKE 2 TABLETS BY MOUTH TWICE A DAY Levothyroxine Sodium [facility] [address]-94 200 MCG Active take 1 tablet by mouth every day on an empty stomach OneTouch Test [facility] [address]-59 1 In Vitro daily Dec 07, 2013 Active one daily dx 250.00 OneTouch Lancets [facility] [address]-50 1 intramuscularly twice a day (bid) Dec 07, 2013 Active as directed dx 250.00 Oxycodone-Acetaminophen [facility] [address]-38 10-325 MG Orally three times a day (tid) Active Unknown Social History Social History Element Qualifiers Date Reported Flu Vaccine: . 12/07/2013 Dec 13, 2014 Where or with whom do you live ? . spouse Dec 13, 2014 Fall Risk: . none in the past year Dec 13, 2014 children . 2 Dec 13, 2014 Tobacco Use: . Are you a: never smoker Dec 13, 2014 Ethnicity . Status , Is irish your primary language? Yes Dec 13, 2014 Use of recreational / street drugs? . Answer: No Dec 13, 2014 Marital Status: . Lopez Escobar Dec 13, 2014 Caffeine intake? . Status: No Dec 13, 2014 Do you exercise? . Answer: Yes, Type: walking, biking Dec 13, 2014 Do you drink alcohol? . Status: No Dec 13, 2014 Occupation: unemployed. Homemaker Dec 13, 2014 Family history Qualifier Description Comment Date Reported Maternal Grandmother Comment not available Dec 13, 2014 Paternal Grandmother Comment not available Dec 13, 2014 Siblings alive Comment not available Dec 13, 2014 Maternal Grandfather Comment not available Dec 13, 2014 Children alive Comment not available Dec 13, 2014 Father Comment not available Dec 13, 2014 Paternal Grandfather Comment not available Dec 13, 2014 Mother Comment not available Dec 13, 2014 Other: Comment not available Dec 13, 2014 Vital Signs Date/Time: Dec 13, 2014 Weight 256 lbs Height 63 in Temperature 98.4 F Cardiac Monitoring Heart Rate 70 /min Blood Pressure Diastolic 62 mm Hg Blood Pressure Systolic 120 mm Hg Summary Purpose eClinicalWorks Submission
--- OUTSIDE RECORDS SUMMARY | 2018-09-12 05:37 | XMS REPORT ---
Author Author Marbella Foss [facility] eClinicalWorks Address Unknown Phone Unavailable Care Team Providers Care Nailing Machine Feeder Name Role Phone Marbella Foss CP Unavailable Allergies, Adverse Reactions, Alerts Substance Reaction Event Type Morphine Sulfate shortness of breath Drug Allergy Encounters Encounter Location Date Referral denial [facility] Dec 09, 2014 spots on back/ diabetes chk up [facility] June 16, 2015 2 week follow up [facility] July 10, 2015 Nausea and vomiting [facility] September 08, 2015 WWE/FBW [facility] Nov 14, 2014 results [facility] Nov 28, 2014 repeat pap [facility] Dec 13, 2014 Test results [facility] September 18, 2015 Soft Tissue [facility] September 10, 2015 follow up for thyroid medicine. [facility] September 17, 2015 Blood work-Corazon [facility] Nov 06, 2015 heart racing fast [facility] Nov 05, 2015 Follow up [facility] Nov 07, 2015 Problems Problem Type Condition ICD-9 Code [...] Active Problem Peripheral neuropathy 356.9 Active Assessment Screening for breast cancer Z12.39 Active Assessment Epigastric pain R10.13 Active Assessment Dependent edema R60.9 Active Assessment Weight loss R63.4 Active Assessment Hypothyroidism E03.9 Active Problem Osteopenia M85.80 Active Assessment DM 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 type II, 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 Active Problem Other and unspecified hyperlipidemia E78.5 Active Assessment Other and unspecified hyperlipidemia E78.5 Active Problem Hypothyroidism E03.9 Active Medications Medication Code System Code Instructions Start Date End Date Status Dosage Fenofibric Acid [facility] 99292276187 135 MG Active TAKE ONE CAPSULE BY MOUTH EVERY DAY Celebrex [facility] [address]-50 200 MG Orally Once a day Active 1 capsule Atorvastatin Calcium [facility] [address]-64 10 mg Orally Once a day July 10, 2015 Active 1 tablet OneTouch OfferWire System [facility] [address]-95 w/Device dx 250.00 daily Dec 07, 2013 Active as directed Furosemide [facility] [address]-87 20 mg Orally qd Active 2 tablet MetFORMIN HCl ER [facility] [address]-96 500 mg Orally Once a day September 08, 2015 Active 1 tablet with evening meal Pantoprazole Sodium [facility] 12749349074 40 MG Active TAKE 1 TABLET BY MOUTH EVERY DAY BuPROPion HCl ER (SR) [facility] [address]-33 150 MG Orally Twice a day Active 1 tablet Cymbalta [facility] [address]-97 60 MG Orally twice a day Active 1 capsule OneTouch Lancets Unknown 0 1 intramuscularly twice a day (bid) Dec 07, 2013 Active as directed dx E11.9 OneTouch Test Unknown 0 1 In Vitro daily Dec 07, 2013 Active one daily dx E11.65 Klor-Con 10 [facility] [address]-95 10 MEQ Orally daily Nov 07, 2015 June 04, 2016 Active 1 tablet with food Lumigan [facility] [address]-17 0.01 % Ophthalmic Once a day Active 1 drop into affected eye in the evening Oxycodone-Acetaminophen [facility] [address]-72 10-325 MG Orally three times a day (tid) Active Unknown Levothyroxine Sodium [facility] [address]-84 175 MCG Orally Once a day September 18, 2015 Active 1 tablet Acetaminophen [facility] 26418-56180 650 MG Orally once a day Active 2 tablets in the evening Ciprofloxacin HCl [facility] [address]-62 250 MG Orally every 12 hrs Active 2 tablets BD U/F Mini Pen Needle [facility] 8290-568632 31G X 5 MM subcutaneously daily with Victoza Dx E11.65 Dec 24, 2013 Active as directed Social History Social History Element Qualifiers Date Reported Occupation: unemployed. Homemaker Nov 07, 2015 children . 2 Nov 07, 2015 Ethnicity . Status , Is croatian your primary language? Yes Nov 07, 2015 Tobacco Use: . Are you a: never smoker Nov 07, 2015 Last Colonoscopy: . 07/2012Nov 07, 2015 Use of recreational / street drugs? . Answer: No Nov 07, 2015 Do you have pets? . Status: No Nov 07, 2015 Where or with whom do you live ? . spouse Nov 07, 2015 Fall Risk: . 2+ in past year w/o injury Nov 07, 2015 Marital Status: . Lopez Escobar Nov 07, 2015 Last Bone Density: . 04/2015Nov 07, 2015 Caffeine intake? . Status: No Nov 07, 2015 Do you exercise? . Answer: Yes, Type: walking, biking Nov 07, 2015 Flu Vaccine: . 2014Nov 07, 2015 Depression Screening: . positive Nov 07, 2015 Do you drink alcohol? . Status: No Nov 07, 2015 Pneumoccocal Vaccine . No Nov 07, 2015 Family history Qualifier Description Comment Date Reported Maternal Grandmother Comment not available Nov 07, 2015 Paternal Grandmother Comment not available Nov 07, 2015 Siblings alive Comment not available Nov 07, 2015 Maternal Grandfather Comment not available Nov 07, 2015 Children alive Comment not available Nov 07, 2015 Father Comment not available Nov 07, 2015 Paternal Grandfather Comment not available Nov 07, 2015 Mother Comment not available Nov 07, 2015 Other: Comment not available Nov 07, 2015 Vital Signs Date/Time: Nov 07, 2015 Weight 209 lbs Height 63 in Cardiac Monitoring Heart Rate 81 /min Blood Pressure Diastolic 70 mm Hg Blood Pressure Systolic 119 mm Hg Summary Purpose eClinicalWorks Submission
--- OUTSIDE RECORDS SUMMARY | 2018-09-12 05:37 | XMS REPORT ---
Author Author Marbella Foss [facility] eClinicalWorks Address Unknown Phone Unavailable Care Team Providers Care Patch Washer Name Role Phone Marbella Foss CP Unavailable Allergies, Adverse Reactions, Alerts Substance Reaction Event Type Morphine Sulfate shortness of breath Drug Allergy Encounters Encounter Location Date Referral denial [facility] Dec 09, 2014 spots on back/ diabetes chk up [facility] June 16, 2015 2 week follow up [facility] July 10, 2015 WWE/FBW [facility] Nov 14, 2014 results [facility] Nov 28, 2014 repeat pap [facility] Dec 13, [...] Active Problem Peripheral neuropathy 356.9 Active Assessment Yeast infection of the skin B37.2 Active Assessment Depression F32.9 Active Assessment Hyperlipidemia E78.5 Active Problem Osteopenia M85.80 Active Assessment Low back pain M54.5 Active Problem Other and unspecified hyperlipidemia E78.5 Active Assessment UTI (urinary tract infection) N39.0 Active Problem Hypothyroidism E03.9 Active Medications Medication Code System Code Instructions Start Date End Date Status Dosage OneTouch Basic System [facility] [employer] [facility] [address]-50 w/Device dx 250.00 daily Dec 07, 2013 Active as directed Lumigan [facility] [employer] [facility] [address]-59 0.01 % Ophthalmic Once a day Active 1 drop into affected eye in the evening Cymbalta [facility] [address]-15 60 MG Orally twice a day Active 1 capsule Oxycodone-Acetaminophen [facility] [address]-64 10-325 MG Orally three times a day (tid) Active Unknown Wellbutrin XL [facility] [address]-38 150 MG Orally Once a day June 16, 2015 Active 1 tablet in the morning BD U/F Mini Pen Needle [facility] 8290-979218 31G X 5 MM subcutaneously daily with Victoza Dx 250.02 Dec 24, 2013 Active as directed Cipro [facility] [address]-93 250 MG Orally every 12 hrs July 10, 2015 July 17, 2015 Active 1 tablet Furosemide [facility] [address]-49 20 mg Orally twice a day (bid) June 17, 2015 Active 2 tablet Levothyroxine Sodium [facility] 91021849951 200 MCG Active TAKE 1 TABLET BY MOUTH EVERY DAY ON AN EMPTY STOMACH Atorvastatin Calcium [facility] [address]-72 10 mg Orally Once a day July 10, 2015 Active 1 tablet Fenofibric Acid [facility] 81600139891 135 MG Active TAKE ONE CAPSULE BY MOUTH EVERY DAY Tizanidine HCl [facility] [address]-37 4 mg Orally every 8 hrs Active 1 tablet as needed Celebrex [facility] [address]-87 200 MG Orally Once a day Active 1 capsule Acetaminophen [facility] 98034-13918 650 MG Orally once a day Active 2 tablets in the evening OneTouch Test [facility] [address]-72 1 In Vitro daily Dec 07, 2013 Active one daily dx 250.00 OneTouch Lancets [facility] [address]-66 1 intramuscularly twice a day (bid) Dec 07, 2013 Active as directed dx 250.00 Pantoprazole Sodium [facility] 45063920201 40 MG Active TAKE 1 TABLET BY MOUTH EVERY DAY Social History Social History Element Qualifiers Date Reported Occupation: unemployed. Homemaker July 10, 2015 children . 2 July 10, 2015 Ethnicity . Status , Is portuguese your primary language? Yes July 10, 2015 Tobacco Use: . Are you a: never smoker July 10, 2015 Last Colonoscopy: . 07/2012July 10, 2015 Use of recreational / street drugs? . Answer: No July 10, 2015 Do you have pets? . Status: No July 10, 2015 Where or with whom do you live ? . spouse July 10, 2015 Fall Risk: . 2+ in past year w/o injury July 10, 2015 Marital Status: . Lopez Escobar July 10, 2015 Last Bone Density: . 04/2015July 10, 2015 Caffeine intake? . Status: No July 10, 2015 Do you exercise? . Answer: Yes, Type: walking, biking July 10, 2015 Flu Vaccine: . 2014July 10, 2015 Depression Screening: . positive July 10, 2015 Do you drink alcohol? . Status: No July 10, 2015 Pneumoccocal Vaccine . No July 10, 2015 Family history Qualifier Description Comment Date Reported Maternal Grandmother Comment not available July 10, 2015 Paternal Grandmother Comment not available July 10, 2015 Siblings alive Comment not available July 10, 2015 Maternal Grandfather Comment not available July 10, 2015 Children alive Comment not available July 10, 2015 Father Comment not available July 10, 2015 Paternal Grandfather Comment not available July 10, 2015 Mother Comment not available July 10, 2015 Other: Comment not available July 10, 2015 Vital Signs Date/Time: July 10, 2015 Weight 230 lbs Height 63 in Cardiac Monitoring Heart Rate 80 /min Blood Pressure Diastolic 90 mm Hg Blood Pressure Systolic 128 mm Hg Summary Purpose eClinicalWorks Submission
--- OUTSIDE RECORDS SUMMARY | 2018-09-12 05:37 | XMS REPORT ---
Author Author Corazon Hernandez Organization eClinicalWorks Address Unknown Phone Unavailable Care Team Providers Care Credit Union Manager Name Role Phone Corazon Hernandez CP Unavailable Encounters Encounter Location Date Referral denial [facility] Dec 09, 2014 spots on back/ diabetes chk up [facility] June 16, 2015 2 week follow up [facility] July 10, 2015 Nausea and vomiting [facility] September 08, 2015 WWE/FBW [facility] Nov 14, 2014 results [facility] Nov 28, 2014 repeat pap [facility] Dec 13, 2014 Soft Tissue Mass-Corazon [facility] September 10, 2015 Problems Problem Type Condition ICD-9 Code [...] Active Assessment Soft tissue swelling R22.9 Active Problem Osteopenia M85.80 Active Problem Other and unspecified hyperlipidemia E78.5 Active Problem Hypothyroidism E03.9 Active Medications Medication Code System Code Instructions Start Date End Date Status Dosage Tizanidine HCl [facility] [address]-06 4 mg Orally every 8 hrs Active 1 tablet as needed BD U/F Mini Pen Needle [facility] 8290-836584 31G X 5 MM subcutaneously daily with Victoza Dx 250.02 Dec 24, 2013 Active as directed [facility] Basic [facility] [address]-99 w/Device dx 250.00 daily Dec 07, 2013 Active as directed Oxycodone-Acetaminophen [facility] [address]-03 10-325 MG Orally three times a day (tid) Active Unknown Acetaminophen [facility] [address]72-80150 650 MG Orally once a day Active 2 tablets in the evening Zofran [facility] [address]-68 4 mg Orally daily as needed September 08, 2015 Active 1 tablet Atorvastatin Calcium [facility] [address]-87 10 mg Orally Once a day July 10, 2015 Active 1 tablet Lumigan [facility] [address]-88 0.01 % Ophthalmic Once a day Active 1 drop into affected eye in the evening Nystatin [facility] [address]-08 761846 UNIT/GM Externally Twice a day September 08, 2015 October 08, 2015 Active 1 to affected area Cymbalta [facility] [address]-23 60 MG Orally twice a day Active 1 capsule BuPROPion HCl ER (SR) [facility] [address]-86 150 MG Orally Twice a day Active 1 tablet Ciprofloxacin HCl [facility] [address]-55 250 MG Orally every 12 hrs Active 2 tablets Levothyroxine Sodium [facility] 48951332662 200 MCG Active TAKE 1 TABLET BY MOUTH EVERY DAY ON AN EMPTY STOMACH Furosemide [facility] 08604258755 20 mg Orally twice a day (bid) Active 2 tablet OneTouch Lancets [facility] [address]-37 1 intramuscularly twice a day (bid) Dec 07, 2013 Active as directed dx 250.00 OneTouch Test [facility] [address]-49 1 In Vitro daily Dec 07, 2013 Active one daily dx 250.00 Wellbutrin XL [facility] [address]-34 150 MG Orally Once a day June 16, 2015 Active 1 tablet in the morning MetFORMIN HCl ER [facility] [address]-49 500 mg Orally Once a day September 08, 2015 Active 1 tablet with evening meal Celebrex [facility] [address]-97 200 MG Orally Once a day Active 1 capsule Pantoprazole Sodium [facility] 94172943610 40 MG Active TAKE 1 TABLET BY MOUTH EVERY DAY Fenofibric Acid [facility] 36383696229 135 MG Active TAKE ONE CAPSULE BY MOUTH EVERY DAY Social History Social History Element Qualifiers Date Reported Occupation: unemployed. Homemaker September 08, 2015 children . 2 September 08, 2015 Ethnicity . Status , Is tamazight your primary language? Yes September 08, 2015 [...] Pneumoccocal Vaccine . No September 08, 2015 Summary Purpose eClinicalWorks Submission
--- OUTSIDE RECORDS SUMMARY | 2018-09-12 05:37 | XMS REPORT ---
Author Author Corazon Hernandez [facility] eClinicalWorks Address Unknown Phone Unavailable Care Team Providers Care Beam Builder Name Role Phone Corazon Hernandez CP Unavailable Allergies, Adverse Reactions, Alerts Substance Reaction Event Type Morphine Sulfate shortness of breath Drug Allergy Encounters Encounter Location Date Referral denial [facility] Dec 09, 2014 spots on back/ diabetes chk up [facility] June 16, 2015 WWE/FBW [facility] Nov 14, 2014 results [facility] Nov 28, 2014 repeat pap [facility] Dec 13, 2014 Problems Problem Type Condition ICD-9 Code Onset Dates Condition Status Problem Other and unspecified hyperlipidemia E78.5 Active Problem DM 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 type II, 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 Active Problem Hypothyroidism E03.9 Active Problem Body Mass Index 40.0-44.9, adult V85.41 Active Problem Peripheral neuropathy 356.9 Active Problem Morbid obesity 278.01 Active Problem Depressive disorder, not elsewhere classified F32.9 Active Problem Esophageal reflux K21.9 Active Problem Osteoarthrosis M19.90 Active Problem Obesity 278.00 Active Assessment BMI 40.0-44.9, adult Z68.41 Active Assessment Low back pain M54.5 Active Assessment SK (seborrheic keratosis) L82.1 Active Assessment Severe obesity (BMI >=40) E66.01 Active Assessment DM 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 type II, 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 Active Assessment Depressive disorder, not elsewhere classified F32.9 Active Assessment Tremor R25.1 Active Assessment Other and unspecified hyperlipidemia E78.5 Active Assessment Skin lesion L98.9 Active Assessment Hypothyroidism E03.9 Active Medications Medication Code System Code Instructions Start Date End Date Status [facility]osage [facility] [address]-27 108 (90 Base) MCG/ACT Inhalation as needed (prn) Active 2 puffs as needed Acetaminophen [facility] 33997-03969 650 MG Orally once a day Active 2 tablets in the evening Wellbutrin XL [facility] [address]-64 150 MG Orally Once a day June 16, 2015 Active 1 tablet in the morning Lyrica [facility] [address]-53 150 MG Orally three times a day (tid) Active 1 capsule Furosemide [facility] [address]-40 20 mg Orally twice a day (bid) (MUST SEE DOCTOR BEFORE NEXT REFILL) May 22, 2015 Active 2 tablet OneTouch Lancets [facility] [address]-84 1 intramuscularly twice a day (bid) Dec 07, 2013 Active as directed dx 250.00 Cymbalta [facility] [address]-57 60 MG Orally twice a day Active 1 capsule Oxycodone-Acetaminophen [facility] [address]-63 10-325 MG Orally three times a day (tid) Active Unknown V[facility] [address]-49 500-20 MG Orally Twice a day Active Unknown Pantoprazole Sodium [facility] 51576336552 40 MG Active TAKE 1 TABLET BY MOUTH EVERY DAY Levothyroxine Sodium [facility] 76398539112 200 MCG Active TAKE 1 TABLET BY MOUTH EVERY DAY ON AN EMPTY STOMACH BD U/F Mini Pen Needle [facility] 8290-364469 31G X 5 MM subcutaneously daily with Victoza Dx 250.02 Dec 24, 2013 Active as directed Lumigan [facility] [address]-36 0.01 % Ophthalmic Once a day Active 1 drop into affected eye in the evening Celebrex [facility] [address]-86 200 MG Orally Once a day Active 1 capsule Meloxicam [facility] [address]-68 7.5 MG Orally every day (qd) Active Unknown OneTouch Test [facility] [address]-38 1 In Vitro daily Dec 07, 2013 Active one daily dx 250.00 Fenofibric Acid [facility] 84911418910 135 MG Active TAKE ONE CAPSULE BY MOUTH EVERY DAY Tizanidine HCl [facility] [address]-15 4 mg Orally every 8 hrs Active 1 tablet as needed Glumetza [facility] 37735204926 1000 MG Active TAKE 1 TABLET BY MOUTH TWICE A DAY OneTouch Sounder System [facility] [address]-79 w/Device dx 250.00 daily Dec 07, 2013 Active as directed Social History Social History Element Qualifiers Date Reported Occupation: unemployed. Homemaker June 16, 2015 children . 2 June 16, 2015 Ethnicity . Status , Is ethiopian your primary language? Yes June 16, 2015 Tobacco Use: . Are you a: never smoker June 16, 2015 Last Colonoscopy: . 07/2012June 16, 2015 Use of recreational / street drugs? . Answer: No June 16, 2015 Do you have pets? . Status: No June 16, 2015 Where or with whom do you live ? . spouse June 16, 2015 Fall Risk: . 2+ in past year w/o injury June 16, 2015 Marital Status: . Lopez Escobar June 16, 2015 Last Bone Density: . 04/2015June 16, 2015 Caffeine intake? . Status: No June 16, 2015 Do you exercise? . Answer: Yes, Type: walking, biking June 16, 2015 Flu Vaccine: . 2014June 16, 2015 Depression Screening: . positive June 16, 2015 Do you drink alcohol? . Status: No June 16, 2015 Pneumoccocal Vaccine . No June 16, 2015 Vital Signs Date/Time: June 16, 2015 Weight 241 lbs Height 63 in Cardiac Monitoring Heart Rate 81 /min Blood Pressure Diastolic 86 mm Hg Blood Pressure Systolic 132 mm Hg Results MONOFILAMENT FOOT EXAMINATION PERFORMED Summary Purpose eClinicalWorks Submission
--- OUTSIDE RECORDS SUMMARY | 2018-09-12 05:37 | XMS REPORT ---
Author Author Corazon Hernandez [facility] eClinicalWorks Address Unknown Phone Unavailable Care Team Providers Care Ornament Maker Hand Name Role Phone Corazon Hernandez CP Unavailable Encounters Encounter Location Date Referral denial [facility] Dec 09, 2014 spots on back/ diabetes chk up [facility] June 16, 2015 2 week follow up [facility] July 10, 2015 Nausea and vomiting [facility] September 08, 2015 WWE/FBW [facility] Nov 14, 2014 results [facility] Nov 28, 2014 repeat pap [facility] Dec 13, 2014 Test results [facility] September 18, 2015 Soft Tissue Mass-Corazon [facility] September 10, 2015 follow up for thyroid medicine. [facility] September 17, 2015 Blood work-Corazon [facility] Nov 06, 2015 heart racing fast [facility] Nov 05, 2015 Follow up [facility] Nov 07, 2015 [...] Active Problem Peripheral neuropathy 356.9 Active Assessment Vomiting R11.10 Active Problem Osteopenia M85.80 Active Assessment Abdominal pain R10.9 Active Problem Other and unspecified hyperlipidemia E78.5 Active Assessment Hypothyroidism E03.9 Active Problem Hypothyroidism E03.9 Active Medications Medication Code System Code Instructions Start Date End Date Status Dosage MetFORMIN HCl ER [facility] [address]-41 500 mg Orally Once a day September 08, 2015 Active 1 tablet with evening meal BD U/F Mini Pen Needle [facility] 8290-609757 31G X 5 MM subcutaneously daily with Victoza Dx 250.02 Dec 24, 2013 Active as directed Fenofibric Acid [facility] 71394374353 135 MG Active TAKE ONE CAPSULE BY MOUTH EVERY DAY BuPROPion HCl ER (SR) [facility] [address]-47 150 MG Orally Twice a day Active 1 tablet Furosemide [facility] 32774370053 20 mg Orally twice a day (bid) Active 2 tablet Oxycodone-Acetaminophen [facility] [address]-45 10-325 MG Orally three times a day (tid) Active Unknown Acetaminophen [facility] 79778-73264 650 MG Orally once a day Active 2 tablets in the evening Ciprofloxacin HCl [facility] [address]-12 250 MG Orally every 12 hrs Active 2 tablets Lumigan [facility] [address]-07 0.01 % Ophthalmic Once a day Active 1 drop into affected eye in the evening Pantoprazole Sodium [facility] 10417013893 40 MG Active TAKE 1 TABLET BY MOUTH EVERY DAY OneTouch Test [facility] [address]-04 1 In Vitro daily Dec 07, 2013 Active one daily dx 250.00 OneTouch Lancets [facility] [address]-67 1 intramuscularly twice a day (bid) Dec 07, 2013 Active as directed dx 250.00 Levothyroxine Sodium [facility] [address]-98 175 MCG Orally Once a day September 18, 2015 Active 1 tablet Celebrex [facility] [address]-59 200 MG Orally Once a day Active 1 capsule OneTouch Basic System [facility] [address]-53 w/Device dx 250.00 daily Dec 07, 2013 Active as directed Atorvastatin Calcium [facility] [address]-25 10 mg Orally Once a day July 10, 2015 Active 1 tablet Cymbalta [facility] [address]-62 60 MG Orally twice a day Active 1 capsule Social History Social History Element Qualifiers Date Reported Occupation: unemployed. Homemaker Nov 07, 2015 children . 2 Nov 07, 2015 Ethnicity . Status , Is peruvian your primary language? Yes Nov 07, 2015 [...] Other: Comment not available Nov 07, 2015 Summary Purpose eClinicalWorks Submission
--- OUTSIDE RECORDS SUMMARY | 2018-09-12 05:37 | XMS REPORT ---
Author Author Juliette Monroy [facility] eClinicalWorks Address Unknown Phone Unavailable Care Team Providers Care Coding Clerk Name Role Phone Juliette Monroy Unavailable Allergies, Adverse Reactions, Alerts Substance Reaction Event Type Morphine Sulfate shortness of breath Drug Allergy Encounters Encounter Location Date WWE/FBW [facility] Nov 14, 2014 results [facility] Nov 28, 2014 Problems Problem Type Condition ICD-9 Code Onset Dates Condition Status Problem Hyperlipidemia 272.4 Active Problem Type II diabetes mellitus, uncontrolled 250.02 Active Problem Hypothyroidism 244.9 Active Assessment Hyperlipidemia 272.4 Active Assessment Type II diabetes mellitus, uncontrolled 250.02 Active Problem Body Mass Index 40.0-44.9, adult V85.41 Active Problem Peripheral neuropathy 356.9 Active Problem Morbid obesity 278.01 Active Problem Depression 311 Active Problem GERD (gastroesophageal reflux disease) 530.81 Active Problem Osteoarthritis 715.90 Active Problem Obesity 278.00 Active Medications Medication Code System Code Instructions Start Date End Date Status Dosage OneTouch Lancets [facility] [address]-19 1 intramuscularly twice a day (bid) Dec 07, 2013 Active as directed dx 250.00 ProAir HFA [facility] [address]-19 108 (90 Base) MCG/ACT Inhalation as needed (prn) Active 2 puffs as needed Furosemide [facility] 71947770152 20 MG Active TAKE 2 TABLETS BY MOUTH TWICE A DAY Pantoprazole Sodium [facility] 48609800198 40 MG Active TAKE 1 TABLET BY MOUTH EVERY DAY Oxycodone-Acetaminophen [facility] [address]-62 10-325 MG Orally three times a day (tid) Active Unknown Tizanidine HCl [facility] [address]-81 4 mg Orally every 8 hrs Active 1 tablet as needed Vimovo [facility] [address]-37 500-20 MG Orally Twice a day Active Unknown Levothyroxine Sodium [facility] [address]-13 200 MCG Active take 1 tablet by mouth every day on an empty stomach Lumigan [facility] [address]-63 0.01 % Ophthalmic Once a day Active 1 drop into affected eye in the evening Glumetza [facility] 59041954031 1000 MG Active TAKE 1 TABLET BY MOUTH TWICE A DAY Cymbalta [facility] [address]-17 60 MG Orally twice a day Active 1 capsule Lyrica [facility] [address]-59 150 MG Orally three times a day (tid) Active 1 capsule OneTouch Basic System [facility] [address]-65 w/Device dx 250.00 daily Dec 07, 2013 Active as directed Meloxicam [facility] [address]-55 7.5 MG Orally every day (qd) Active Unknown OneTouch Test [facility] [address]-67 1 In Vitro daily Dec 07, 2013 Active one daily dx 250.00 Fenofibric Acid [facility] 03110833009 135 MG Active TAKE ONE CAPSULE BY MOUTH EVERY DAY BD U/F Mini Pen Needle [facility] 8290-521463 31G X 5 MM subcutaneously daily with Victoza Dx 250.02 Dec 24, 2013 Active as directed Social History Social History Element Qualifiers Date Reported Flu Vaccine: . 12/07/2013 Nov 28, 2014 Where or with whom do you live ? . spouse Nov 28, 2014 Fall Risk: . none in the past year Nov 28, 2014 children . 2 Nov 28, 2014 Tobacco Use: . Are you a: never smoker Nov 28, 2014 Ethnicity . Status , Is vietnamese your primary language? Yes Nov 28, 2014 Use of recreational / street drugs? . Answer: No Nov 28, 2014 Marital Status: . Lopez Escobar Nov 28, 2014 Caffeine intake? . Status: No Nov 28, 2014 Do you exercise? . Answer: Yes, Type: walking, biking Nov 28, 2014 Do you drink alcohol? . Status: No Nov 28, 2014 Occupation: unemployed. Homemaker Nov 28, 2014 Family history Qualifier Description Comment Date Reported Maternal Grandmother Comment not available Nov 28, 2014 Paternal Grandmother Comment not available Nov 28, 2014 Siblings alive Comment not available Nov 28, 2014 Maternal Grandfather Comment not available Nov 28, 2014 Children alive Comment not available Nov 28, 2014 Father Comment not available Nov 28, 2014 Paternal Grandfather Comment not available Nov 28, 2014 Mother Comment not available Nov 28, 2014 Other: Comment not available Nov 28, 2014 Vital Signs Date/Time: Nov 28, 2014 Weight 254 lbs Height 63 in Temperature 97.4 F Cardiac Monitoring Heart Rate 73 /min Blood Pressure Diastolic 68 mm Hg Blood Pressure Systolic 112 mm Hg Summary Purpose eClinicalWorks Submission
--- OUTSIDE RECORDS SUMMARY | 2018-09-12 05:38 | XMS REPORT ---
Author Author Corazon Hernandez [facility] eClinicalWorks Address Unknown Phone Unavailable Care Team Providers Care Raymond Mill Operator Name Role Phone Corazon Hernandez CP Unavailable Encounters Encounter Location Date Referral denial [facility] Dec 09, 2014 spots on back/ diabetes chk up [facility] June 16, 2015 2 week follow up [facility] July 10, 2015 Nausea and vomiting [facility] September 08, 2015 WWE/FBW [facility] Nov 14, 2014 results [facility] Nov 28, 2014 repeat pap [facility] Dec 13, 2014 Test results [facility] September 18, 2015 Soft Tissue Mass-Corazon [facility] September 10, 2015 follow up for thyroid medicine. [facility] September 17, 2015 itching [facility] Dec 08, 2015 Blood work-Corazon [facility] Nov 06, 2015 Unknown [facility] Dec 09, 2015 heart racing fast [facility] Nov 05, 2015 Follow up [facility] Nov 07, 2015 [...] Active Problem Peripheral neuropathy 356.9 Active Problem Osteopenia M85.80 Active Problem Other and unspecified hyperlipidemia E78.5 Active Problem Hypothyroidism E03.9 Active Medications Medication Code System Code Instructions Start Date End Date Status Dosage Levothyroxine Sodium [facility] [address]-12 150 MCG Orally Once a day, 30 minutes before first meal on an empty stomach Dec 09, 2015 Active 1 tablet Levothyroxine Sodium [facility] [address]-56 175 MCG Orally Once a day September 18, 2015 Inactive 1 tablet Social History Social History Element Qualifiers Date Reported Occupation: unemployed. Homemaker Dec 08, 2015 children . 2 Dec 08, 2015 Ethnicity . Status , Is yakut your primary language? Yes Dec 08, 2015 Tobacco Use: . Are you a: never smoker Dec 08, 2015 Last Colonoscopy: . 07/2012Dec 08, 2015 Use of recreational / street drugs? . Answer: No Dec 08, 2015 Do you have pets? . Status: No Dec 08, 2015 Where or with whom do you live ? . spouse Dec 08, 2015 Fall Risk: . 2+ in past year w/o injury Dec 08, 2015 Marital Status: . Lopez Escobar Dec 08, 2015 Last Bone Density: . 04/2015Dec 08, 2015 Caffeine intake? . Status: No Dec 08, 2015 Do you exercise? . Answer: Yes, Type: walking, biking Dec 08, 2015 Flu Vaccine: . 2014Dec 08, 2015 Depression Screening: . positive Dec 08, 2015 Do you drink alcohol? . Status: No Dec 08, 2015 Pneumoccocal Vaccine . No Dec 08, 2015 Summary Purpose eClinicalWorks Submission
--- OUTSIDE RECORDS SUMMARY | 2018-09-12 05:38 | XMS REPORT ---
Author Author [facility] Address Unknown Phone Unavailable Care Team Providers Care Contract Administration Specialist Name Role Phone Unavailable Unavailable Problems This patient has no known problems. Allergies, Adverse Reactions, Alerts This patient has no known allergies or adverse reactions. Medications This patient has no known medications. Results Test Description Test Time Test Comments Text Results Atomic Results Result Comments SCR MAMM BILATERAL JOCY CAD DIGITAL 2018-08-14 18:52:23 - SCR MAMM BILATERAL JOCY CAD DIGITALBILATERAL DIGITAL SCREENING MAMMOGRAM 3D/2D WITH CAD: 08/07/2018CLINICAL: Asymptomatic. Digital breast tomosynthesis was performed in addition to routine CC and MLO views. Current mammographic images were evaluated by either a [employer] M-Vu or a Scripted ImageChecker CAD (computer aided detection system). Comparison is made to exams dated 02/27/2016 mammogram and mammogram - [facility]. There are scattered fibroglandular tissues in both breasts. No suspicious mass, architectural distortion, malignant type calcification, or lymph node abnormality detected. Breast architecture is stable compared to prior exams.IMPRESSION: NEGATIVEThere is no mammographic evidence of malignancy. Resume annual screening mammography in one year. Tere patterson/laura:08/14/2018 18:52:23 Soil Analyst: Lula GUTIERREZ, [facility]-FWletter sent: BIRADS 1-2 Normal Mammogram BI-RADS: 1 Negative
--- OUTSIDE RECORDS SUMMARY | 2018-09-12 05:38 | XMS REPORT ---
Author Author Marbella Foss [facility] eClinicalWorks Address Unknown Phone Unavailable Care Team Providers Care Splicing Machine Operator Automatic Name Role Phone Marbella Foss CP Unavailable Allergies, Adverse Reactions, Alerts Substance Reaction Event Type Morphine Sulfate shortness of breath Drug Allergy Problems Problem Type Condition Code Onset Dates Condition Status Assessment Severe obesity (BMI 35.0-39.9) E66.01 Active Assessment BMI 38.0-38.9,adult Z68.38 Active Assessment Dependent edema R60.9 Active Assessment Continuous leakage of urine N39.45 Active Problem Depressive disorder, not elsewhere classified F32.9 Active Assessment Other chronic pain G89.29 Active Problem Obesity 278.00 Active Assessment Osteopenia M85.80 Active Problem Osteoarthrosis M19.90 Active Problem Body Mass Index 40.0-44.9, adult V85.41 Active Problem Peripheral neuropathy 356.9 Active Problem Severe obesity (BMI 35.0-39.9) E66.01 Active Problem Carpal tunnel syndrome, left G56.02 Active Assessment DM 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 type II, 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 Active Assessment Depressive disorder, not elsewhere classified F32.9 Active Problem BMI 38.0-38.9,adult Z68.38 Active Assessment Esophageal reflux K21.9 Active Problem Low back pain M54.5 Active Problem Morbid obesity 278.01 Active Problem Other chronic pain G89.29 Active Problem Hyperlipidemia E78.5 Active Assessment Encntr for general adult medical exam w/o abnormal findings Z00.00 Active Problem Osteopenia M85.80 Active Assessment Hypothyroidism E03.9 Active Assessment Other and unspecified hyperlipidemia E78.5 Active Problem DM 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 type II, 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 Active Problem Esophageal reflux K21.9 Active Problem Other and unspecified hyperlipidemia E78.5 Active Problem Hypothyroidism E03.9 Active Medications Medication Code System Code Instructions Start Date End Date Status Dosage OneTouch Test NDC 0 1 In Vitro daily Dec 07, 2013 Active one daily dx E11.65 Acetaminophen NDC 02877-28245 650 MG Orally once a day Active 2 tablets in the evening Wellbutrin XL [facility] 39999960740 150 MG Orally Once a day Active 1 tablet in the morning BuPROPion HCl ER (SR) [facility] [address]-76 150 MG Orally Twice a day Active 1 tablet Fenofibric Acid [facility] [address]-65 135 MG Orally Once a day Active 1 capsule Furosemide [facility] [address]-26 20 MG Orally qd Active 2 tablet Celebrex [facility] [address]-75 200 MG Orally Once a day Active 1 capsule Cymbalta [facility] [address]-89 60 MG Orally twice a day Active 1 capsule Levothyroxine Sodium [facility] [address]-06 150 MCG Orally Once a day Inactive 1 tablet Vitamin D [facility] [address]-37 36493 UNIT Orally once per week Active 1 capsule Pantoprazole Sodium [facility] [address]-61 40 MG Orally Once a day Active 1 tablet Atorvastatin Calcium [facility] [address]-75 10 mg Orally Once a day July 10, 2015 Active 1 tablet Lumigan [facility] [address]-79 0.01 % Ophthalmic Once a day Active 1 drop into affected eye in the evening BD U/F Mini Pen Needle [facility] 8290-060653 31G X 5 MM subcutaneously daily with Victoza Dx E11.65 Dec 24, 2013 Active as directed Oxycodone-Acetaminophen [facility] [address]-93 10-325 MG Orally three times a day (tid) Active not defined MetFORMIN HCl ER [facility] [address]-00 500 MG Orally Once a day Active 1 tablet with evening meal OneTouch Lancets ND 0 1 intramuscularly twice a day (bid) Dec 07, 2013 Active as directed dx E11.9 OneTouch Basic System [facility] [address]-08 w/Device dx 250.00 daily Dec 07, 2013 Active as directed Vital Signs Date/Time: July 20, 2016 BMI 38.44 Index Weight 217 lbs Height 63 in Cardiac Monitoring Heart Rate 77 /min Blood Pressure Diastolic 70 mm Hg Blood Pressure Systolic 116 mm Hg Results No Known Results Summary Purpose eClinicalWorks Submission
--- OUTSIDE RECORDS SUMMARY | 2018-09-12 05:38 | XMS REPORT ---
Author Author Corazon Hernandez [facility] eClinicalWorks Address Unknown Phone Unavailable Care Team Providers Care Windscreen Fitter Name Role Phone Corazon Hernandez Unavailable Allergies, Adverse Reactions, Alerts Substance Reaction Event Type Morphine Sulfate shortness of breath Drug Allergy Encounters Encounter Location Date Referral denial [facility] Dec 09, 2014 spots on back/ diabetes chk up [facility] June 16, 2015 2 week follow up [facility] July 10, 2015 Nausea and vomiting [facility] September 08, 2015 WWE/FBW [facility] Nov 14, [address] [facility] Nov 28, [address] [facility] Dec 13, [address] [facility] September 18, 2015 Soft Tissue [facility] September 10, 2015 follow up for thyroid medicine. [facility] September 17, [address] [facility] Dec 08, 2015 Blood work-Corazon [facility] Nov 06, [address] [facility] Dec 09, [address] [facility] Nov 05, [address] [facility] Nov 07, [...] Active Problem Peripheral neuropathy 356.9 Active Assessment Vaginitis N76.0 Active Problem Osteopenia M85.80 Active Assessment Hypothyroidism E03.9 Active Problem Other and unspecified hyperlipidemia E78.5 Active Assessment Dependent edema R60.9 Active Problem Hypothyroidism E03.9 Active Medications Medication Code System Code Instructions Start Date End Date Status Dosage Diflucan [place] [address]-69 150 MG Orally once and another in 72 hours if needed Dec 08, 2015 Dec 11, 2015 Active 1 tablet Lumigan [place] [address]-79 0.01 % Ophthalmic Once a day Active 1 drop into affected eye in the evening Acetaminophen [place] [address]73-49137 650 MG Orally once a day Active 2 tablets in the evening Cymbalta [place] [address]-89 60 MG Orally twice a day Active 1 capsule OneTouch Lancets Unknown 0 1 intramuscularly twice a day (bid) Dec 07, 2013 Active as directed dx E11.9 Klor-Con 10 [place] [address]-63 10 MEQ Orally daily Nov 07, 2015 June 04, 2016 Active 1 tablet with food BuPROPion HCl ER (SR) [place] [address]-98 150 MG Orally Twice a day Active 1 tablet Fenofibric Acid [place] 56487139794 135 MG Active TAKE ONE CAPSULE BY MOUTH EVERY DAY Oxycodone-Acetaminophen [place] [address]-47 10-325 MG Orally three times a day (tid) Active Unknown MetFORMIN HCl ER [place] [address]-39 500 mg Orally Once a day September 08, 2015 Active 1 tablet with evening meal Ciprofloxacin HCl [place] [address]-85 250 MG Orally every 12 hrs Active 2 tablets BD U/F Mini Pen Needle [place] 8290-211753 31G X 5 MM subcutaneously daily with Victoza Dx E11.65 Dec 24, 2013 Active as directed Furosemide [place] [address]-93 20 mg Orally qd Active 2 tablet Levothyroxine Sodium [place] [address]-26 175 MCG Orally Once a day September 18, 2015 Active 1 tablet OneTouch Test Unknown 0 1 In Vitro daily Dec 07, 2013 Active one daily dx E11.65 Atorvastatin Calcium [place] [address]-84 10 mg Orally Once a day July 10, 2015 Active 1 tablet Pantoprazole Sodium [place] 04215879582 40 MG Active TAKE 1 TABLET BY MOUTH EVERY DAY Celebrex [place] [address]-31 200 MG Orally Once a day Active 1 capsule OneTouch Basic System [place] [address]-54 w/Device dx 250.00 daily Dec 07, 2013 Active as directed Social History Social History Element Qualifiers Date Reported Occupation: unemployed. Homemaker Dec 08, 2015 children . 2 Dec 08, 2015 Ethnicity . Status , Is andorran your primary language? Yes Dec 08, 2015 [...] Pneumoccocal Vaccine . No Dec 08, 2015 Vital Signs Date/Time: Dec 08, 2015 Weight 201 lbs Height 63 in Cardiac Monitoring Heart Rate 83 /min Blood Pressure Diastolic 72 mm Hg Blood Pressure Systolic 120 mm Hg Summary Purpose eClinicalWorks Submission
--- OUTSIDE RECORDS SUMMARY | 2018-09-12 05:38 | XMS REPORT ---
Author Author Corazon Hernandez [facility] eClinicalWorks Address Unknown Phone Unavailable Care Team Providers Care Recreational Facilities Motel Manager Name Role Phone Corazon Hernandez Unavailable Allergies, Adverse Reactions, Alerts Substance Reaction Event Type Morphine Sulfate shortness of breath Drug Allergy Encounters Encounter Location Date Referral denial [facility] Dec 09, 2014 spots on back/ diabetes chk up [facility] June 16, 2015 2 week follow up [facility] July 10, 2015 Nausea and vomiting [facility] September 08, 2015 WWE/FBW [facility] Nov 14, 2014 heart racing fast [facility] Nov 05, 2015 results [facility] Nov 28, 2014 repeat pap [facility] Dec 13, 2014 Test results [facility] September 18, 2015 Soft Tissue Mass-[facility]azon [facility] September 10, 2015 follow up for thyroid medicine. [facility] September 17, [...] Active Problem Peripheral neuropathy 356.9 Active Assessment Abdominal mass R19.00 Active Assessment Abdominal pain R10.9 Active Assessment Anxiety F41.9 Active Assessment Chest pain R07.9 Active Problem Osteopenia M85.80 Active Assessment Vomiting R11.10 Active Problem Other and unspecified hyperlipidemia E78.5 Active Assessment Hypothyroidism E03.9 Active Problem Hypothyroidism E03.9 Active Medications Medication Code System Code Instructions Start Date End Date Status Dosage Fenofibric Acid [facility] 57972201935 135 MG Active TAKE ONE CAPSULE BY MOUTH EVERY DAY Pantoprazole Sodium [facility] 33059990307 40 MG Active TAKE 1 TABLET BY MOUTH EVERY DAY BD U/F Mini Pen Needle [facility] 8290-585810 31G X 5 MM subcutaneously daily with Victoza Dx 250.02 Dec 24, 2013 Active as directed Furosemide [facility] 89212098150 20 mg Orally twice a day (bid) Active 2 tablet BuPROPion HCl ER (SR) [facility] [address]-92 150 MG Orally Twice a day Active 1 tablet Levothyroxine Sodium [facility] [address]-39 175 MCG Orally Once a day September 18, 2015 Active 1 tablet Lumigan [facility] [address]-98 0.01 % Ophthalmic Once a day Active 1 drop into affected eye in the evening Oxycodone-Acetaminophen [facility] [address]-64 10-325 MG Orally three times a day (tid) Active Unknown MetFORMIN HCl ER [facility] [address]-83 500 mg Orally Once a day September 08, 2015 Active 1 tablet with evening meal OneTouch CloudTran System [facility] [address]-71 w/Device dx 250.00 daily Dec 07, 2013 Active as directed OneTouch Test [facility] [address]-96 1 In Vitro daily Dec 07, 2013 Active one daily dx 250.00 Cymbalta [facility] [address]-07 60 MG Orally twice a day Active 1 capsule Wellbutrin XL [facility] [address]-45 150 MG Orally Once a day June 16, 2015 Inactive 1 tablet in the morning Ciprofloxacin HCl [facility] [address]-84 250 MG Orally every 12 hrs Active 2 tablets Atorvastatin Calcium [facility] [address]-65 10 mg Orally Once a day July 10, 2015 Active 1 tablet Acetaminophen [facility] 01473-20580 650 MG Orally once a day Active 2 tablets in the evening Celebrex [facility] [address]-68 200 MG Orally Once a day Active 1 capsule OneTouch Lancets [facility] [address]-23 1 intramuscularly twice a day (bid) Dec 07, 2013 Active as directed dx 250.00 Social History Social History Element Qualifiers Date Reported Occupation: unemployed. Homemaker Nov 07, 2015 children . 2 Nov 07, 2015 Ethnicity . Status , Is turkish your primary language? Yes Nov 07, 2015 [...] Nov 07, 2015 Vital Signs Date/Time: Nov 05, 2015 Weight 211 lbs Height 63 in Cardiac Monitoring Heart Rate 76 /min Blood Pressure Diastolic 64 mm Hg Blood Pressure Systolic 122 mm Hg Results EKG Summary Purpose eClinicalWorks Submission
--- OUTSIDE RECORDS SUMMARY | 2018-09-12 05:38 | XMS REPORT ---
Author Author Corazon Hernandez [facility] eClinicalWorks Address Unknown Phone Unavailable Care Team Providers Care Duplication Specialist Name Role Phone Corazon Hernandez CP Unavailable Allergies, Adverse Reactions, Alerts Substance Reaction Event Type Morphine Sulfate shortness of breath Drug Allergy Encounters Encounter Location Date Referral denial [facility] Dec 09, 2014 spots on back/ diabetes chk up [facility] June 16, 2015 2 week follow up [facility] July 10, 2015 Nausea and vomiting [facility] September 08, 2015 WWE/FBW [facility] Nov 14, 2014 results [facility] Nov 28, 2014 repeat pap [facility] Dec 13, 2014 Test results [facility] September 18, 2015 Soft Tissue Mass-Corazon [facility] September 10, 2015 follow up for thyroid medicine. [facility] September 17, 2015 FOLLOW UP FROM PREVIOUS VISIT [facility] Apr 21, 2016 ear ache [facility] June 03, 2016 itching [facility] Dec 08, 2015 LOWER ABDOMAN PAIN [facility] Jan 14, 2016 Blood work-Corazon [facility] Nov 06, 2015 Unknown [facility] Dec 09, 2015 heart racing fast [facility] Nov 05, 2015 Follow up [facility] Nov 07, 2015 Problems Problem Type Condition ICD-9 Code Onset Dates Condition Status Problem Depressive disorder, not elsewhere classified F32.9 Active Problem Osteoarthrosis M19.90 Active Problem Obesity 278.00 Active Problem Other chronic pain G89.29 Active Problem Hyperlipidemia E78.5 Active Problem Carpal tunnel syndrome, left G56.02 Active Problem Body Mass Index 40.0-44.9, adult V85.41 Active Problem Peripheral neuropathy 356.9 Active Problem Low back pain M54.5 Active Problem Morbid obesity 278.01 Active Assessment Impacted cerumen of both ears H61.23 Active Problem Other and unspecified hyperlipidemia E78.5 Active Problem Hypothyroidism E03.9 Active Assessment Hearing loss, unspecified hearing loss type, unspecified laterality H91.90 Active Problem DM 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 type II, 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 Active Problem Osteopenia M85.80 Active Problem Esophageal reflux K21.9 Active Medications Medication Code System Code Instructions Start Date End Date Status Dosage OneTouch Lancets Unknown 0 1 intramuscularly twice a day (bid) Dec 07, 2013 Active as directed dx E11.9 OneTouch Test Unknown 0 1 In Vitro daily Dec 07, 2013 Active one daily dx E11.65 Atorvastatin Calcium [facility] [address]-53 10 mg Orally Once a day July 10, 2015 Active 1 tablet Vitamin D [facility] [address]-53 87820 UNIT Orally Once a day Active 1 capsule Cymbalta [facility] [address]-26 60 MG Orally twice a day Active 1 capsule Lumigan [facility] [address]-37 0.01 % Ophthalmic Once a day Active 1 drop into affected eye in the evening Levothyroxine Sodium [facility] [address]-22 150 MCG Orally Once a day Active 1 tablet Oxycodone-Acetaminophen [facility] [address]-50 10-325 MG Orally three times a day (tid) Active Unknown MetFORMIN HCl ER [facility] [address]-08 500 MG Orally Once a day Active 1 tablet with evening meal Wellbutrin XL [facility] 69644360284 150 MG Orally Once a day Active 1 tablet in the morning Fenofibric Acid [facility] [address]-60 135 MG Orally Once a day Active 1 capsule Furosemide [facility] [address]-07 20 mg Orally qd Active 2 tablet Celebrex [facility] [address]-06 200 MG Orally Once a day Active 1 capsule Acetaminophen [facility] 26224-22680 650 MG Orally once a day Active 2 tablets in the evening Klor-Con 10 [facility] [address]-68 10 MEQ Orally daily Nov 07, 2015 June 04, 2016 Active 1 tablet with food Pantoprazole Sodium [facility] [address]-76 40 MG Orally Once a day Active 1 tablet BD U/F Mini Pen Needle [facility] 8290-541274 31G X 5 MM subcutaneously daily with Victoza Dx E11.65 Dec 24, 2013 Active as directed [facility] [address]-52 w/Device dx 250.00 daily Dec 07, 2013 Active as directed BuPROPion HCl ER (SR) [facility] [address]-08 150 MG Orally Twice a day Active 1 tablet Social History Social History Element Qualifiers Date Reported Occupation: unemployed. Homemaker June 03, 2016 children . 2 June 03, 2016 Ethnicity . Status , Is monegasque your primary language? Yes June 03, 2016 Tobacco Use: . Are you a: never smoker June 03, 2016 Last Colonoscopy: . 07/2012June 03, 2016 Use of recreational / street drugs? . Answer: No June 03, 2016 Do you have pets? . Status: No June 03, 2016 Where or with whom do you live ? . spouse June 03, 2016 Last Bone Density: . 04/2015June 03, 2016 Marital Status: . Lopze Escobar June 03, 2016 Pneumoccocal Vaccine . No June 03, 2016 Caffeine intake? . Status: No June 03, 2016 Do you exercise? . Answer: Yes, Type: walking, biking June 03, 2016 Depression Screening: . positive June 03, 2016 Fall Risk: . 2+ in past year w/o injury June 03, 2016 Do you drink alcohol? . Status: No June 03, 2016 Vital Signs Date/Time: June 03, 2016 Weight 207 lbs Height 63 in Cardiac Monitoring Heart Rate 72 /min Blood Pressure Diastolic 72 mm Hg Blood Pressure Systolic 122 mm Hg Summary Purpose eClinicalWorks Submission
--- OUTSIDE RECORDS SUMMARY | 2018-09-12 05:38 | XMS REPORT ---
Author Author Marbella Foss Organization [employer] Address Unknown Phone Unavailable Care Team Providers Care Automatic Packer Operator Name Role Phone Marbella Foss CP Unavailable Allergies, Adverse Reactions, Alerts Substance Reaction Event Type Morphine Sulfate shortness of breath Drug Allergy Encounters Encounter Location Date Referral denial [facility] Dec 09, 2014 spots on back/ diabetes chk up [facility] June 16, 2015 2 week follow up [facility] July 10, 2015 Nausea and vomiting [facility] September 08, 2015 WWE/FBW [facility] Nov 14, 2014 results [facility] Nov 28, 2014 repeat pap [facility] Dec 13, 2014 Test results [facility] September 18, 2015 Soft Tissue Mass[facility] September 10, 2015 follow up for thyroid medicine. [facility] September 17, 2015 FOLLOW UP FROM PREVIOUS VISIT [facility] Apr 21, 2016 itching [facility] Dec 08, 2015 LOWER ABDOMAN PAIN [facility] Jan 14, 2016 Blood work-[facility] Nov 06, 2015 Unknown [facility] Dec 09, 2015 heart racing fast [facility] Nov 05, 2015 Follow up [facility] Nov 07, 2015 Problems Problem Type Condition ICD-9 Code Onset Dates Condition Status Problem Depressive disorder, not elsewhere classified F32.9 Active Problem Osteoarthrosis M19.90 Active Problem Obesity 278.00 Active Problem Other chronic pain G89.29 Active Assessment Other chronic pain G89.29 Active Problem Hyperlipidemia E78.5 Active Problem Carpal tunnel syndrome, left G56.02 Active Problem Body Mass Index 40.0-44.9, adult V85.41 Active Problem Peripheral neuropathy 356.9 Active Problem Low back pain M54.5 Active Problem Morbid obesity 278.01 Active Assessment DM 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 type II, 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 Active Assessment Hypothyroidism E03.9 Active Assessment Pain in thoracic spine M54.6 Active Assessment Carpal tunnel syndrome, left G56.02 Active Problem Other and unspecified hyperlipidemia E78.5 Active Problem Hypothyroidism E03.9 Active Assessment Status post umbilical hernia repair, follow-up exam Z09 Active Problem DM 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 type II, 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 Active Problem Osteopenia M85.80 Active Problem Esophageal reflux K21.9 Active Medications Medication Code System Code Instructions Start Date End Date Status Dosage Levothyroxine Sodium [facility] [address]-47 150 MCG Orally Once a day Active 1 tablet OneTouch Test Unknown 0 1 In Vitro daily Dec 07, 2013 Active one daily dx E11. Celebrex [facility] [address]-30 200 MG Orally Once a day Active 1 capsule Furosemide [facility] [address]-99 20 mg Orally qd Active 2 tablet Oxycodone-Acetaminophen [facility] [address]-86 10-325 MG Orally three times a day (tid) Active Unknown Pantoprazole Sodium [facility] [address]-45 40 MG Orally Once a day Mar 15, 2016 Active 1 tablet Klor-Con 10 [facility] [address]-04 10 MEQ Orally daily Nov 07, 2015 June 04, 2016 Active 1 tablet with food Acetaminophen [facility] 83[address]-93235 650 MG Orally once a day Active 2 tablets in the evening Fenofibric Acid [facility] [address]-33 135 MG Orally Once a day Mar 15, 2016 Active 1 capsule MetFORMIN HCl ER [facility] [address]-81 500 MG Orally Once a day Mar 15, 2016 Active 1 tablet with evening meal Atorvastatin Calcium [facility] [address]-33 10 mg Orally Once a day July 10, 2015 Active 1 tablet BuPROPion HCl ER (SR) [facility] [address]-59 150 MG Orally Twice a day Active 1 tablet Wellbutrin XL [facility] 02576262755 150 MG Orally Once a day Active 1 tablet in the morning Lumigan [facility] [address]-29 0.01 % Ophthalmic Once a day Active 1 drop into affected eye in the evening BD U/F Mini Pen Needle [facility] 8290-497743 31G X 5 MM subcutaneously daily with Victoza Dx E11.65 Dec 24, 2013 Active as directed Cymbalta [facility] [address]-60 60 MG Orally twice a day Active 1 capsule Ciprofloxacin HCl [facility] [address]-76 250 MG Orally every 12 hrs Active 2 tablets OneTouch Lancets Unknown 0 1 intramuscularly twice a day (bid) Dec 07, 2013 Active as directed dx E11.9 OneTouch Basic System [facility] [address]-17 w/Device dx 250.00 daily Dec 07, 2013 Active as directed Social History Social History Element Qualifiers Date Reported Occupation: unemployed. Homemaker Apr 21, 2016 children . 2 Apr 21, 2016 Ethnicity . Status , Is austrian your primary language? Yes Apr 21, 2016 Tobacco Use: . Are you a: never smoker Apr 21, 2016 Last Colonoscopy: . 07/2012Apr 21, 2016 Use of recreational / street drugs? . Answer: No Apr 21, 2016 Do you have pets? . Status: No Apr 21, 2016 Where or with whom do you live ? . spouse Apr 21, 2016 Last Bone Density: . 04/2015Apr 21, 2016 Marital Status: . Lopez Escobar Apr 21, 2016 Pneumoccocal Vaccine . No Apr 21, 2016 Caffeine intake? . Status: No Apr 21, 2016 Do you exercise? . Answer: Yes, Type: walking, biking Apr 21, 2016 Depression Screening: . positive Apr 21, 2016 Fall Risk: . 2+ in past year w/o injury Apr 21, 2016 Do you drink alcohol? . Status: No Apr 21, 2016 Vital Signs Date/Time: Apr 21, 2016 Weight 206 lbs Height 63 in Cardiac Monitoring Heart Rate 74 /min Blood Pressure Diastolic 70 mm Hg Blood Pressure Systolic 110 mm Hg Summary Purpose [employer] Submission
--- OUTSIDE RECORDS SUMMARY | 2018-09-12 05:38 | XMS REPORT ---
Author Author Corazon Hernandez [facility] [employer] Address Unknown Phone Unavailable Care Team Providers Care Game Technician Name Role Phone Corazon Hernandez Unavailable Allergies, [...] Instructions Start Date End Date Status Dosage Vitamin D [facility] [address]-58 34394 UNIT Orally once per week Active 1 capsule Furosemide [facility] [address]-90 20 MG Orally qd Active 2 tablet Wellbutrin XL [facility] 83388172268 150 MG Orally Once a day Active 1 tablet in the morning Lumigan [facility] [address]-55 0.01 % Ophthalmic Once a day Active 1 drop into affected eye in the evening BD U/F Mini Pen Needle [facility] 8290-496346 31G X 5 MM subcutaneously daily with Victoza Dx E11.65 Dec 24, 2013 Active as directed Bactrim DS [facility] [address]-88 800-160 MG Orally Twice a day July 28, 2016 August 04, 2016 Active 1 tablet Cymbalta [facility] [address]-68 60 MG Orally twice a day Active 1 capsule Oxycodone-Acetaminophen [facility] [address]-00 10-325 MG Orally three times a day (tid) Active not defined Acetaminophen [facility] [address]481-21032 650 MG Orally once a day Active 2 tablets in the evening Celebrex [facility] [address]-49 200 MG Orally Once a day Active 1 capsule Fenofibric Acid [facility] [address]-94 135 MG Orally Once a day Active 1 capsule Atorvastatin Calcium [facility] [address]-11 10 mg Orally Once a day July 10, 2015 Active 1 tablet OneTouch Lancets NDC 0 1 intramuscularly twice a day (bid) Dec 07, 2013 Active as directed dx E11.9 OneTouch Basic System [facility] [address]-22 w/Device dx 250.00 daily Dec 07, 2013 Active as directed MetFORMIN HCl ER [facility] [address]-82 500 MG Orally Once a day Active 1 tablet with evening meal Pantoprazole Sodium [facility] [place] [address]-98 40 MG Orally Once a day Active 1 tablet OneTouch Test NDC 0 1 In Vitro daily Dec 07, 2013 Active one daily dx E11.65 Vital Signs Date/Time: July 27, 2016 BMI 38.44 Index Weight 217 lbs Height 63 in Cardiac Monitoring Heart Rate 74 /min Blood Pressure Diastolic 74 mm Hg Blood Pressure Systolic 128 mm Hg Results No Known Results Summary Purpose [employer] Submission
--- OUTSIDE RECORDS SUMMARY | 2018-09-12 05:38 | XMS REPORT ---
Author Author Corazon Hernandez [facility] [employer]Works Address Unknown Phone Unavailable Care Team Providers Care Occupational Therapist Aide Name Role Phone Corazon Hernandez Unavailable Allergies, Adverse Reactions, Alerts Substance Reaction Event Type Morphine Sulfate shortness of breath Drug Allergy Encounters Encounter Location Date Referral denial [facility] Dec 09, 2014 spots on back/ diabetes chk up [facility] June 16, 2015 2 week follow up [facility] July 10, 2015 Nausea and vomiting [facility] September 08, 2015 WWE/FBW [facility] Nov 14, 2014 results [facility] Nov 28, 2014 repeat pap [facility] Dec 13, 2014 Test results [facility] September 18, 2015 [facility] 10, 2015 follow up for thyroid medicine. [facility] September 17, 2015 itching [facility] Dec 08, 2015 LOWER ABDOMAN PAIN [facility] Jan 14, 2016 Blood work-Corazon [facility] Nov 06, 2015 Unknown [facility] Dec 09, 2015 heart racing fast [facility] Nov 05, 2015 Follow up [facility] Nov 07, [...] Active Problem Peripheral neuropathy 356.9 Active Assessment Lower abdominal pain R10.30 Active Problem Osteopenia M85.80 Active Assessment Acute cystitis with hematuria N30.01 Active Problem Other and unspecified hyperlipidemia E78.5 Active Assessment Umbilical hernia without obstruction and without gangrene K42.9 Active Problem Hypothyroidism E03.9 Active Medications Medication Code System Code Instructions Start Date End Date Status Dosage Celebrex [facility] [address]-98 200 MG Orally Once a day Active 1 capsule Acetaminophen [facility] [address] 650 MG Orally once a day Active 2 tablets in the evening Ciprofloxacin HCl [facility] [address]-78 250 MG Orally every 12 hrs Active 2 tablets Levothyroxine Sodium [facility] [address]-06 150 MCG Orally Once a day, 30 minutes before first meal on an empty stomach Dec 09, 2015 Active 1 tablet MetFORMIN HCl ER [facility] [address]-75 500 mg Orally Once a day September 08, 2015 Active 1 tablet with evening meal Cipro [facility] [address]-98 500 MG Orally Twice a day Jan 14, 2016 Jan 19, 2016 Active 1 tablet BuPROPion HCl ER (SR) [facility] [address]-89 150 MG Orally Twice a day Active 1 tablet OneTouch Lancets Unknown 0 1 intramuscularly twice a day (bid) Dec 07, 2013 Active as directed dx E11.9 Cymbalta [facility] [address]-02 60 MG Orally twice a day Active 1 capsule Furosemide [facility] [address]-06 20 mg Orally qd Active 2 tablet Atorvastatin Calcium [facility] [address]-36 10 mg Orally Once a day July 10, 2015 Active 1 tablet OneTouch Basic System [facility] [address]-08 w/Device dx 250.00 daily Dec 07, 2013 Active as directed Lumigan [facility] [address]-49 0.01 % Ophthalmic Once a day Active 1 drop into affected eye in the evening Pantoprazole Sodium [facility] 87020554487 40 MG Active TAKE 1 TABLET BY MOUTH EVERY DAY BD U/F Mini Pen Needle [facility] 8290-104742 31G X 5 MM subcutaneously daily with Victoza Dx E11.65 Dec 24, 2013 Active as directed Klor-Con 10 [facility] [address]-92 10 MEQ Orally daily Nov 07, 2015 June 04, 2016 Active 1 tablet with food Fenofibric Acid [facility] 56496167642 135 MG Active TAKE ONE CAPSULE BY MOUTH EVERY DAY OneTouch Test Unknown 0 1 In Vitro daily Dec 07, 2013 Active one daily dx E11.65 Oxycodone-Acetaminophen [facility] [address]-29 10-325 MG Orally three times a day (tid) Active Unknown Social History Social History Element Qualifiers Date Reported Occupation: unemployed. Homemaker Jan 14, 2016 children . 2 Jan 14, 2016 Ethnicity . Status , Is irish your primary language? Yes Jan 14, 2016 Tobacco Use: . Are you a: never smoker Jan 14, 2016 Last Colonoscopy: . 07/2012Jan 14, 2016 Use of recreational / street drugs? . Answer: No Jan 14, 2016 Do you have pets? . Status: No Jan 14, 2016 Where or with whom do you live ? . spouse Jan 14, 2016 Fall Risk: . 2+ in past year w/o injury Jan 14, 2016 Marital Status: . Lopez Escobar Jan 14, 2016 Last Bone Density: . 04/2015Jan 14, 2016 Caffeine intake? . Status: No Jan 14, 2016 Do you exercise? . Answer: Yes, Type: walking, biking Jan 14, 2016 Flu Vaccine: . 2014Jan 14, 2016 Depression Screening: . positive Jan 14, 2016 Do you drink alcohol? . Status: No Jan 14, 2016 Pneumoccocal Vaccine . No Jan 14, 2016 Family history Qualifier Description Comment Date Reported Maternal Grandmother Comment not available Jan 14, 2016 Paternal Grandmother Comment not available Jan 14, 2016 Siblings alive Comment not available Jan 14, 2016 Maternal Grandfather Comment not available Jan 14, 2016 Children alive Comment not available Jan 14, 2016 Father Comment not available Jan 14, 2016 Paternal Grandfather Comment not available Jan 14, 2016 Mother Comment not available Jan 14, 2016 Other: Comment not available Jan 14, 2016 Vital Signs Date/Time: Jan 14, 2016 Weight 191 lbs Height 63 in Blood Pressure Diastolic 76 mm Hg Blood Pressure Systolic 124 mm Hg Results URINE AUTO W/O SCOPE Summary Purpose eClinicalWorks Submission
[2018-09-12 08:25] VITALS: BP 123/83
--- NOTE | 2018-09-12 14:57 | Operative Report ---
DATE OF PROCEDURE: SURGEON: Vidal Bunch MD PROCEDURE: Endoscopy. PREPROCEDURE DIAGNOSIS: The patient is a 67-year-old female with persistent episodes of nausea and vomiting. Differential diagnoses includes gastric outlet obstruction, peptic ulcer disease, upper GI neoplasm, GERD, gastroparesis. DESCRIPTION OF PROCEDURE: After informed and written consent, premedications with monitored anesthesia care, standard adult video Olympus gastroscope was introduced into the stomach, esophagus, and stomach into the second portion of the duodenum. The fundus of the stomach the first and second portion of the duodenum showed some partially digested food. This was suggestive of gastroparesis. Next, biopsies of the small intestine and antrum, body were done to rule out any possibility of celiac sprue and H. pylori. Retroflexion revealed a small sliding hiatal hernia. The rest of the esophagus appeared to be normal. The Z-line was intact. There was early fibrotic changes seen in the area of the GE junction, but the patient denies dysphagia at the current time. IMPRESSION: Hiatal hernia, rule out gastroparesis. RECOMMENDATION: PPI. GERD precautions. Low residue diet and consider gastric emptying studies if it has not been done recently. Further recommendations will be based on patient's clinical course. Vidal Bunch MD SR/MODL /[id number]
== END | disposition home or self-care (01) ==
LOC: OR 05:30
PROVIDERS: ATTEND Internal Medicine Gastroenterology
DX: R11.2 Nausea with vomiting, unspecified (principal); K31.89 Other diseases of stomach and duodenum; K21.9 Gastro-esophageal reflux disease without esophagitis; K44.9 Diaphragmatic hernia without obstruction or gangrene; R63.4 Abnormal weight loss; Z71.3 Dietary counseling and surveillance; E11.9 Type 2 diabetes mellitus without complications; E66.9 Obesity, unspecified; F03.90 Unspecified dementia, unspecified severity, without behavioral disturbance, psychotic disturbance, mood disturbance, and anxiety; R55 Syncope and collapse; G47.33 Obstructive sleep apnea (adult) (pediatric); E03.9 Hypothyroidism, unspecified; Z88.6 Allergy status to analgesic agent; Z01.810 Encounter for preprocedural cardiovascular examination; Z01.812 Encounter for preprocedural laboratory examination; Z79.84 Long term (current) use of oral hypoglycemic drugs; Z68.34 Body mass index [BMI] 34.0-34.9, adult
CPT/HCPCS: 36415 ×2; 43239; 82948; 85025; 88305; 88312; 93005; J2704